=== PATIENT | female | born 1940 | race Caucasian/White ===

== ENCOUNTER 2016-12-31 11:42 | Emergency (ER) | payer MEDICARE, OTHER ==
[2016-12-31 12:07] VITALS: BP 144/81
--- NOTE | 2016-12-31 12:14 | EDM.PDOC ---
ED HISTORY OF PRESENT ILLNESS - General Chief Complaint: Respiratory Problem Stated Complaint: COUGH Time Seen by Provider: 12/31/16 12:13 Source: Reports: Patient History Limitations: Reports: No limitations - History of Present Illness INITIAL COMMENTS - FREE TEXT/NARRATIVE: pt arrived coughing markedly. She has lost her voice at this time. Timing/Duration: Reports: Day(s):, Getting worse Location, General: Reports: chest Associated Symptoms: Reports: fever/chills, shortness of breath - Related Data Allergies/ADRs: Allergies Allergy/AdvReac Type Severity Reaction Status Date / Time No Known Allergies Allergy Verified 10/18/15 10:29 Home Meds: Home Meds Aspirin [Ecotrin] 81 mg PO DAILY 06/17/13 [History] Atenolol [Tenormin] 25 mg PO DAILY 06/17/13 [History] Estrogens, Conjugated [Premarin] 1.25 mg PO DAILY 06/17/13 [History] Pantoprazole Sodium [Protonix] 45 mg PO DAILY 06/17/13 [History] Spironolactone [Aldactone] 25 mg PO DAILY 06/17/13 [History] Vit C/Vit E Ac/Lut/Mineral 1 [Prosight with Lutein] 1 each PO DAILY 06/17/13 [ History] Vitamin D* 2,000 units PO DAILY 06/17/13 [History] atorvaSTATin [Lipitor] 20 mg PO BEDTIME 06/17/13 [History] Vit A/Vit C/Vit E/Zinc/Copper [Preservision] 1 tab PO BID 06/19/13 [History] Fluticasone/Salmeterol [Advair Hfa 230-21 Mcg Inhaler] 1 puff PO DAILY PRN 10/18 [History] Past Medical History HEENT History: Reports: Cataract Cardiovascular History: Reports: Bypass, Hypertension Respiratory History: Reports: Asthma 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 Social & Family History - Family History Cardiac: Reports: CAD Respiratory: Reports: Asthma - Tobacco Use Smoking Status *Q: Never Smoker Years of Tobacco use: 20 Used Tobacco, but Quit: Yes Month Tobacco Last Used: 03/1990 Second Hand Smoke Exposure: No - Alcohol Use Days Per Week of Alcohol Use: 0 - Recreational Drug Use Recreational Drug Use: No ED ROS GENERAL - Review of Systems Review Of Systems: See Below Constitutional: Reports: fever, chills, malaise HEENT: Reports: No symptoms Respiratory: Reports: Cough, Sputum Cardiovascular: Reports: No symptoms Endocrine: Reports: no symptoms GI/Abdominal: Reports: No symptoms : Reports: no symptoms ED EXAM, GENERAL - Physical Exam Exam: See Below Free Text/Narrative:: pt arrived with marked cough for the past 2 days. She has had a fever on and off. Exam Limited By: No limitations General Appearance: alert, mild distress Ears: normal TMs Nose: normal inspection Throat/Mouth: Normal inspection Head: atraumatic Neck: normal inspection Respiratory/Chest: decreased breath sounds, wheezing Cardiovascular: regular rate, rhythm GI/Abdominal: soft, non tender Rectal (Female) Exam: Deferred Back Exam: normal inspection Extremities: other ( no edema present. ) Neurological: alert, oriented, normal cognition Psychiatric: normal affect Course - Vital Signs Last Recorded V/S: Last Vital Signs Temp 37.1 C 12/31/16 12:05 Pulse 67 12/31/16 12:05 Resp 15 12/31/16 12:05 BP 144/81 H 12/31/16 12:05 Pulse Ox 96 12/31/16 12:05 - Orders/Labs/Meds Orders: Active Orders 24 hr Category Date Time Status RT Aerosol Therapy [RC] ASDIRECTED Care 12/31/16 12:16 Active Chest 2V [CR] Stat Exams 12/31/16 12:15 Taken Labs: Laboratory Tests 12/31/16 Range/Units 12:18 WBC 11.7 H (4.5-11.0) K/uL RBC 4.27 (3.30-5.50) M/uL Hgb 12.9 (12.0-15.0) g/dL Hct 38.8 (36.0-48.0) % MCV 91 (80-98) fL MCH 30 (27-31) pg MCHC 33 (32-36) % Plt Count 306 (150-400) K/uL Neut % (Auto) 67 H (36-66) % Lymph % (Auto) 18 L (24-44) % Cass % (Auto) 11 H (2-6) % Eos % (Auto) 3 (2-4) % Baso % (Auto) 1 (0-1) % Meds: Medications Discontinued Medications Generic Name Dose Route Start Last Admin Trade Name Aleyda PRN Reason Stop Dose Admin Albuterol 2.5 mg 12/31/16 12:15 12/31/16 12:38 Proventil Neb Soln NEB 12/31/16 12:16 2.5 mg ONETIME ONE Administration - Re-Assessments/Exams Free Text/Narrative Re-Assessment/Exam: 12/31/16 12:52 pt arrived with sob and cough. Her wbc is borderline. She does not have alot of eossinophils. . Her chest xray does not show an infiltracte. She was given a neb and did feel better. She does use advair once per day . Departure - Departure Time of Disposition: 12:53 Disposition: Home, Self-Care 01 Condition: fair Clinical Impression: Bronchitis, Bronchospasm Forms: ED Department Discharge Care Plan Goals: push fluids, cool mist humidifier, cont advair once daily, zithromax for 1 week , robitussin ac 2 tsp q6h as needed for the cough, no work for the next 2 days. - My Orders Last 24 Hours: My Active Orders 12/31/16 12:15 Chest 2V [CR] Stat 12/31/16 12:16 RT Aerosol Therapy [RC] ASDIRECTED - Assessment/Plan Last 24 Hours: My Active Orders 12/31/16 12:15 Chest 2V [CR] Stat 12/31/16 12:16 RT Aerosol Therapy [RC] ASDIRECTED
[2016-12-31] MEDS ORDERED: Albuterol 0.083% 2.5 MG/3 ML Neb Soln NEB ONE (12:15)
--- NOTE | 2017-01-01 10:26 | CR ---
Two-view chest Comparison: June 2008. Intact sternal wires are demonstrated. The heart and vascular structures are within normal limits. There are no infiltrates or effusions. There is a chronic nodular density in the right lung base. Impression: 1. Stable exam. No acute findings.
== END 2016-12-31 13:08 | disposition home or self-care (01) ==
LOC: JP.ED 11:42
DX: J40 Bronchitis, not specified as acute or chronic (principal); J98.01 Acute bronchospasm; I10 Essential (primary) hypertension; Z79.82 Long term (current) use of aspirin; Z79.899 Other long term (current) drug therapy; Z90.49 Acquired absence of other specified parts of digestive tract; Z90.710 Acquired absence of both cervix and uterus
CPT/HCPCS: 36415; 71020; 71020-26; 85025; 99283; 99284

== ENCOUNTER 2017-05-14 09:29 | Inpatient (IN) | payer MEDICARE, OTHER ==
[2017-05-14] MEDS ORDERED: Acetaminophen 325 MG Tab PO ONE (10:09)
--- NOTE | 2017-05-14 10:11 | EDM.PDOC ---
ED HPI GENERAL MEDICAL PROBLEM - General Chief Complaint: General Stated Complaint: CHILLS WEAK Time Seen by Provider: 05/14/17 10:01 Source of Information: Reports: Patient, Family, RN Notes Reviewed History Limitations: Reports: No Limitations - History of Present Illness INITIAL COMMENTS - FREE TEXT/NARRATIVE: 76-year-old female presents to emergency department day complaint of fevers and chills, she states she's been ill for the last 3 days she denies any tick exposure she does admit to urinary frequency but no other symptoms - Related Data Allergies Allergy/AdvReac Type Severity Reaction Status Date / Time No Known Allergies Allergy Verified 05/14/17 09:53 Home Meds: Home Meds Aspirin [Ecotrin] 81 mg PO DAILY 06/17/13 [History] Atenolol [Tenormin] 25 mg PO DAILY 06/17/13 [History] Estrogens, Conjugated [Premarin] 1.25 mg PO DAILY 06/17/13 [History] Pantoprazole Sodium [Protonix] 40 mg PO DAILY 06/17/13 [History] atorvaSTATin [Lipitor] 20 mg PO BEDTIME 06/17/13 [History] Vit A/Vit C/Vit E/Zinc/Copper [Preservision] 1 tab PO BID 06/19/13 [History] Fluticasone/Salmeterol [Advair Hfa 230-21 Mcg Inhaler] 1 puff PO DAILY PRN 10/18 [History] Spironolact/Hydrochlorothiazid [Spironolactone-HCTZ 25-25] 1 tab PO DAILY [History] Past Medical History HEENT History: Reports: Cataract Cardiovascular History: Reports: Bypass, CAD, Hypertension 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 History: Reports: Asthma 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: - Past Surgical History HEENT Surgical History: Reports: Cataract Surgery, Other (See Below) Other HEENT Surgeries/Procedures: teeth removal Cardiovascular Surgical History: Reports: Coronary Artery Bypass GI Surgical History: Reports: Cholecystectomy Female Surgical History: Reports: Hysterectomy Musculoskeletal Surgical History: Reports: Shoulder Surgery Other Musculoskeletal Surgeries/Procedures:: torn left rotator cuff Social & Family History - Family History Cardiac: Reports: CAD Respiratory: Reports: Asthma - Tobacco Use Smoking Status *Q: Former Smoker Years of Tobacco use: 20 Used Tobacco, but Quit: Yes Month Tobacco Last Used: 0 Second Hand Smoke Exposure: No - Alcohol Use Days Per Week of Alcohol Use: 0 - Recreational Drug Use Recreational Drug Use: No ED ROS GENERAL - Review of Systems Review Of Systems: See Below Constitutional: Reports: Fever, Chills HEENT: Reports: No Symptoms Respiratory: Reports: No Symptoms Cardiovascular: Reports: No Symptoms GI/Abdominal: Reports: No Symptoms : Reports: Dysuria Musculoskeletal: Reports: No Symptoms Skin: Reports: No Symptoms ED EXAM, GENERAL - Physical Exam Exam: See Below Free Text/Narrative:: General: Female, not in any distress, alert and oriented x3 HEENT: head is atraumatic normocephalic, eyes pupils equal round reactive to light, sclera clear no conjunctivitis appreciated. Ears tympanic membranes clear and claros landmarks and light reflex are present bilaterally canals are clear. Nose no septal deviation, nares are clear, no blood present. Mouth mucosa is moist and pink no erythema or exudate noted in soft palate, tongue is midline uvula is midline, dentures in place. Neck: Supple no thyromegaly no tracheal deviation. Nodes: Cervical nodes subclavicular nodes nontender no palpable lymphadenopathy noted. Lungs: clear to auscultation bilaterally with symmetrical respirations, no adventitious noise appreciated. CV: Regular rate and rhythm S1 and S2 appreciated no murmurs rubs or gallops noted. Abdomen: Soft, nontender, no palpable masses or organomegaly appreciated, no distention no guarding bowel sounds are present, . Neuro: Cranial nerves II through XII grossly intact Skin: Warm and dry, intact Extremities: No lower extremity edema appreciated, pedal pulse is +2. Course - Vital Signs Last Recorded V/S: Last Vital Signs Temp 101.7 F H 05/14/17 09:51 Pulse 75 05/14/17 10:20 Resp 16 05/14/17 10:20 BP 120/49 L 05/14/17 10:20 Pulse Ox 92 L 05/14/17 10:20 - Orders/Labs/Meds Orders: Active Orders 24 hr Category Date Time Status Vital Signs [RC] Q1H Care 05/14/17 10:06 Active CULTURE BLOOD [BC] Urgent Lab 05/14/17 10:07 Received CULTURE BLOOD [BC] Urgent Lab 05/14/17 10:15 Received CULTURE URINE [RM] Urgent Lab 05/14/17 11:04 Uncollected Lactated Ringers [Ringers, Lactated] 1,000 ml Med 05/14/17 10:15 Active IV ASDIRECTED Piperacillin/Tazobactam/Dext [Zosyn in Dextrose Iso- Med 05/14/17 12:00 Active Osmotic 3.375 GM] 3.375 gm Premix Bag 1 bag IV Q6H Blood Culture x2 Reflex Set [OM.PC] Urgent Oth 05/14/17 10:06 Ordered Medication Orders Lactated Ringer's (Ringers, Lactated) 1,000 mls @ 500 mls/hr IV ASDIRECTED VIDHYA Last Admin: 05/14/17 10:25 Dose: 500 mls/hr Piperacillin/Tazobactam/ (Dextrose 3.375 gm/ Premix) 50 mls @ 100 mls/hr IV Q6H VIDHYA Labs: Laboratory Tests 05/14/17 05/14/17 05/14/17 Range/Units 10:06 10:06 10:16 WBC 12.3 H (4.5-11.0) K/uL RBC 4.02 (3.30-5.50) M/uL Hgb 12.4 (12.0-15.0) g/dL Hct 36.5 (36.0-48.0) % MCV 91 (80-98) fL MCH 31 (27-31) pg MCHC 34 (32-36) % Plt Count 258 (150-400) K/uL Neut % (Auto) 84 H (36-66) % Lymph % (Auto) 6 L (24-44) % Pratt % (Auto) 10 H (2-6) % Eos % (Auto) 0 L (2-4) % Baso % (Auto) 0 (0-1) % Sodium 133 L (140-148) mmol/L Potassium 3.0 L (3.6-5.2) mmol/L Chloride 97 L (100-108) mmol/L Carbon Dioxide 26 (21-32) mmol/L Anion Gap 13.0 (5.0-14.0) mmol/L BUN 18 (7-18) mg/dL Creatinine 1.0 (0.6-1.0) mg/dL Est Cr Clr Drug Dosing 36.11 mL/min Estimated GFR (MDRD) 54 L (>60) Glucose 129 H (74-106) mg/dL Lactic Acid (0.4-2.0) mmol/L Calcium 8.3 L (8.5-10.1) mg/dL Total Bilirubin 0.4 (0.2-1.0) mg/dL AST 23 (15-37) U/L ALT 25 (12-78) U/L Alkaline Phosphatase 69 (46-116) U/L C-Reactive Protein 12.44 H (0.0-0.3) mg/dL Total Protein 7.6 (6.4-8.2) g/dL Albumin 2.8 L (3.4-5.0) g/dL Globulin 4.8 H (2.3-3.5) g/dL Albumin/Globulin Ratio 0.6 L (1.2-2.2) Urine Color Yellow Urine Appearance Cloudy Urine pH 6.0 (4.5-8.0) Ur Specific Page 1.020 (1.008-1.030) Urine Protein 30 H (NEGATIVE) mg/dL Urine Glucose (UA) Normal (NEGATIVE) mg/dL Urine Ketones 15 H (NEGATIVE) mg/dL Urine Occult Blood Moderate (NEGATIVE) Urine Nitrite Positive H (NEGATIVE) Urine Bilirubin Negative (NEGATIVE) Urine Urobilinogen Normal (NORMAL) mg/dL Ur Leukocyte Esterase Large (NEGATIVE) Urine RBC 10-20 H (0-5) Urine WBC 75-100 H (0-5) Ur Epithelial Cells Moderate Amorphous Sediment Not seen Urine Bacteria Many Urine Mucus Not seen 05/14/17 Range/Units 10:16 WBC (4.5-11.0) K/uL RBC (3.30-5.50) M/uL Hgb (12.0-15.0) g/dL Hct (36.0-48.0) % MCV (80-98) fL MCH (27-31) pg MCHC (32-36) % Plt Count (150-400) K/uL Neut % (Auto) (36-66) % Lymph % (Auto) (24-44) % Pratt % (Auto) (2-6) % Eos % (Auto) (2-4) % Baso % (Auto) (0-1) % Sodium (140-148) mmol/L Potassium (3.6-5.2) mmol/L Chloride (100-108) mmol/L Carbon Dioxide (21-32) mmol/L Anion Gap (5.0-14.0) mmol/L BUN (7-18) mg/dL Creatinine (0.6-1.0) mg/dL Est Cr Clr Drug Dosing mL/min Estimated GFR (MDRD) (>60) Glucose (74-106) mg/dL Lactic Acid 0.9 (0.4-2.0) mmol/L Calcium (8.5-10.1) mg/dL Total Bilirubin (0.2-1.0) mg/dL AST (15-37) U/L ALT (12-78) U/L Alkaline Phosphatase (46-116) U/L C-Reactive Protein (0.0-0.3) mg/dL Total Protein (6.4-8.2) g/dL Albumin (3.4-5.0) g/dL Globulin (2.3-3.5) g/dL Albumin/Globulin Ratio (1.2-2.2) Urine Color Urine Appearance Urine pH (4.5-8.0) Ur Specific Page (1.008-1.030) Urine Protein (NEGATIVE) mg/dL Urine Glucose (UA) (NEGATIVE) mg/dL Urine Ketones (NEGATIVE) mg/dL Urine Occult Blood (NEGATIVE) Urine Nitrite (NEGATIVE) Urine Bilirubin (NEGATIVE) Urine Urobilinogen (NORMAL) mg/dL Ur Leukocyte Esterase (NEGATIVE) Urine RBC (0-5) Urine WBC (0-5) Ur Epithelial Cells Amorphous Sediment Urine Bacteria Urine Mucus Meds: Medications Generic Name Dose Route Start Last Admin Trade Name Freq PRN Reason Stop Dose Admin Lactated Ringer's 1,000 mls @ 500 mls/hr 05/14/17 10:15 05/14/17 10:25 Ringers, Lactated IV 500 mls/hr ASDIRECTED VIDHYA Administration Piperacillin/Tazobactam/ 50 mls @ 100 mls/hr 05/14/17 12:00 Dextrose 3.375 gm/ Premix IV Q6H VIDHYA Discontinued Medications Generic Name Dose Route Start Last Admin Trade Name Freq PRN Reason Stop Dose Admin Acetaminophen 650 mg 05/14/17 10:05/14/17 10:22 Tylenol PO 05/14/17 10:10 650 mg NOW ONE Administration Piperacillin Sod/Tazobactam 50 mls @ 100 mls/hr 05/14/17 11:00 Sod 3.375 gm/ Sodium Chloride IV Q6H [facility] Departure - Departure Time of Disposition: 11:11 Disposition: Admitted As Inpatient 66 Condition: Fair Clinical Impression: UTI, Urinary tract infectious disease, Sepsis secondary to UTI - Discharge Information Referrals: PCP,None [Primary Care Provider] - Forms: ED Department Discharge - My Orders Last 24 Hours: My Active Orders 05/14/17 10:06 Vital Signs [RC] Q1H Blood Culture x2 Reflex Set [OM.PC] Urgent 05/14/17 10:07 CULTURE BLOOD [BC] Urgent 05/14/17 10:15 CULTURE BLOOD [BC] Urgent Lactated Ringers [Ringers, Lactated] 1,000 ml IV ASDIRECTED 05/14/17 11:04 CULTURE URINE [RM] Urgent 05/14/17 12:00 Piperacillin/Tazobactam/Dext [Zosyn in Dextrose Iso-Osmotic 3.375 GM] 3.375 gm Premix Bag 1 bag IV Q6H - Assessment/Plan Last 24 Hours: My Active Orders 05/14/17 10:06 Vital Signs [RC] Q1H Blood Culture x2 Reflex Set [OM.PC] Urgent 05/14/17 10:07 CULTURE BLOOD [BC] Urgent 05/14/17 10:15 CULTURE BLOOD [BC] Urgent Lactated Ringers [Ringers, Lactated] 1,000 ml IV ASDIRECTED 05/14/17 11:04 CULTURE URINE [RM] Urgent 05/14/17 12:00 Piperacillin/Tazobactam/Dext [Zosyn in Dextrose Iso-Osmotic 3.375 GM] 3.375 gm Premix Bag 1 bag IV Q6H Plan: Assessment Acuity = acute Site and laterality = urinary tract infection with concern for development of early sepsis complicated patient with known history of coronary artery disease and mild intermittent asthma Etiology = suspicious for bacterial cause Manifestations = fever, dysuria Location of injury = Home Lab values = WBC elevated at 12.3 consistent leukocytosis, sodium low at 133 consistent hyponatremia potassium low at 3.0 consistent hypokalemia lactic acid normal at 0.9 CRP elevated at 12.49 albumin low at 2.8 consistent hypoalbuminemia chest x-ray I did review films myself I cannot appreciate any acute process, the official read from radiology is pending, urinalysis reveals protein of 30 consistent proteinuria ketones of 15 consistent with ketonuria positive for nitrates RBC 10-20 consistent with a hematuria and WBC 75-100 consistent with pyuria cultures pending, blood cultures drawn and pending Plan Discussed the case with hospitalist acquisition analyst he agreed to come and evaluate the patient in the emergency department for admission she has been provided 1 L of lactated Ringer's, Tylenol and 1 dose of Zosyn Patient was in agreement with the plan all questions were answered, This note was dictated using POW voice recognition software please call with any questions.
[2017-05-14] MEDS ORDERED: Lactated Ringers 1,000 ML IV SCH (10:15)
--- NOTE | 2017-05-14 10:57 | CR ---
Chest 2V INDICATION: fever FINDINGS: Comparison 12/31/2016. Sternotomy. Normal heart size. No focal infiltrate. Stable chronic nod ular density in the right lung base is better visualized on prior exam.
[2017-05-14] MEDS ORDERED: Piperacillin/Tazobactam 3.375 GM in Sodium Chloride 0.9% 50 ML IV SCH (11:00)
[2017-05-14] MEDS ORDERED: Potassium Chloride 20 MEQ Tab.ER PO ONE (11:14)
[2017-05-14] MEDS: Potassium Chloride 20 MEQ, Lidocaine 1% 2 ML in Sodium Chloride 0.9% 100 ML IV SCH ×2 (11:50→13:28)
[2017-05-14] MEDS ORDERED: Piperacillin/Tazobactam/Dext 3.375 GM in Premix Bag 1 BAG IV SCH (12:00)
--- NOTE | 2017-05-14 12:31 | PCM.HP ---
H&P History of Present Illness - General Date of Service: 05/14/17 Admit Problem/Dx: Admission Diagnosis/Problem Admission Diagnosis/Problem Cystitis Source of Information: Patient, Family, Provider, RN Notes Reviewed History Limitations: Reports: No Limitations - History of Present Illness Initial Comments - Free Text/Narative: Ms. Paul is a 76-year-old woman who is admitted through the emergency department with cystitis and early sepsis. She has not felt well over the past 48 hours, recent symptoms include, fever, chills, sweats, anorexia, myalgias, weakness, lightheadedness, as well as nausea and vomiting. On evaluation in emergency department she is noted to have temperature elevation of 101.7 associated with a modest elevation in white blood cell count. Chest x-ray shows no evidence of infiltrate, but urinalysis shows evidence of obvious infection. With temperature elevation she's felt to have early sepsis and has received acres IV fluid replacement in the emergency department. Blood cultures have been obtained as well as urine culture and she has been given her an initial dose of antibiotics. Lactic acid level is within normal range, heart rate and blood pressure are adequate. - Related Data Allergies/Adverse Reactions: Allergies Allergy/AdvReac Type Severity Reaction Status Date / Time No Known Allergies Allergy Verified 05/14/17 09:53 Home Medications: Home Meds Aspirin [Ecotrin] 81 mg PO DAILY 06/17/13 [History] Atenolol [Tenormin] 25 mg PO DAILY 06/17/13 [History] Estrogens, Conjugated [Premarin] 1.25 mg PO DAILY 06/17/13 [History] Pantoprazole Sodium [Protonix] 40 mg PO DAILY 06/17/13 [History] atorvaSTATin [Lipitor] 20 mg PO BEDTIME 06/17/13 [History] Vit A/Vit C/Vit E/Zinc/Copper [Preservision] 1 tab PO BID 06/19/13 [History] Fluticasone/Salmeterol [Advair Hfa 230-21 Mcg Inhaler] 1 puff PO DAILY PRN 10/18 [History] Spironolact/Hydrochlorothiazid [Spironolactone-HCTZ 25-25] 1 tab PO DAILY [History] Past Medical History HEENT History: Reports: Cataract Cardiovascular History: Reports: Bypass, CAD, Hypertension Respiratory History: Reports: Asthma DE ICER History: Reports: - Past Surgical History HEENT Surgical History: Reports: Cataract Surgery, Other (See Below) Other HEENT Surgeries/Procedures: teeth removal Cardiovascular Surgical History: Reports: Coronary Artery Bypass GI Surgical History: Reports: Cholecystectomy Female Surgical History: Reports: Hysterectomy Musculoskeletal Surgical History: Reports: Shoulder Surgery Other Musculoskeletal Surgeries/Procedures:: torn left rotator cuff Social & Family History - Family History Cardiac: Reports: CAD Respiratory: Reports: Asthma - Tobacco Use Smoking Status *Q: Former Smoker Years of Tobacco use: 20 Used Tobacco, but Quit: Yes Month Tobacco Last Used: 0 Second Hand Smoke Exposure: No - Alcohol Use Days Per Week of Alcohol Use: 0 - Recreational Drug Use Recreational Drug Use: No H&P Review of Systems - Review of Systems: Review Of Systems: See Below General: Reports: Fever, Chills, Weakness, Decreased Appetite HEENT: Reports: No Symptoms Pulmonary: Reports: No Symptoms Cardiovascular: Reports: No Symptoms Gastrointestinal: Reports: No Symptoms Genitourinary: Reports: Frequency, Urgency. Denies: Dysuria, Burning, Pain Musculoskeletal: Reports: Back Pain Skin: Reports: No Symptoms Psychiatric: Reports: No Symptoms Neurological: Reports: No Symptoms Hematologic/Lymphatic: Reports: No Symptoms Immunologic: Reports: No Symptoms Exam - Exam Exam: See Below - Vital Signs Vital Signs: Last Vital Signs Temp 99.7 F 05/14/17 11:47 Pulse 65 05/14/17 11:47 Resp 14 05/14/17 11:47 BP 110/62 05/14/17 11:47 Pulse Ox 92 L 05/14/17 11:47 Weight: 126 lb 15.78 oz - Exam Quality Assessment: DVT Prophylaxis General: Alert, Oriented, Cooperative, Mild Distress HEENT: PERRLA, Conjunctiva Clear, Hearing Intact, Normal Nasal Septum, Posterior Pharynx Clear, Pupils Equal. No: Mucosa Moist & [place] Neck: Supple, Trachea Midline, +2 Carotid Pulse wo Bruit Lungs: Clear to Auscultation, Normal Respiratory Effort Cardiovascular: Regular Rate, Regular Rhythm, Normal S1, Normal S2. No: Systolic Murmur, Diastolic Murmur GI/Abdominal Exam: Normal Bowel Sounds, Soft, Non-Tender, No Distention Back Exam: Normal Inspection, Full Range of Motion, NT Extremities: Normal Inspection, Non-Tender, No Pedal Edema Skin: Warm, Dry, Intact Neurological: Cranial Nerves Intact, Strength Equal Bilateral, Normal Speech, Normal Tone, Sensation Intact. No: Focal Deficit Neuro Extensive - Mental Status: Alert, Oriented x3, Normal Mood/Affect, Normal Cognition, Memory Intact - Patient Data Lab Results Last 24 hrs: Laboratory Results - last 24 hr 05/14/17 05/14/17 05/14/17 Range/Units 10:06 10:06 10:16 WBC 12.3 H (4.5-11.0) K/uL RBC 4.02 (3.30-5.50) M/uL Hgb 12.4 (12.0-15.0) g/dL Hct 36.5 (36.0-48.0) % MCV 91 (80-98) fL MCH 31 (27-31) pg MCHC 34 (32-36) % Plt Count 258 (150-400) K/uL Neut % (Auto) 84 H (36-66) % Lymph % (Auto) 6 L (24-44) % Delta % (Auto) 10 H (2-6) % Eos % (Auto) 0 L (2-4) % Baso % (Auto) 0 (0-1) % Sodium 133 L (140-148) mmol/L Potassium 3.0 L (3.6-5.2) mmol/L Chloride 97 L (100-108) mmol/L Carbon Dioxide 26 (21-32) mmol/L Anion Gap 13.0 (5.0-14.0) mmol/L BUN 18 (7-18) mg/dL Creatinine 1.0 (0.6-1.0) mg/dL Est Cr Clr Drug Dosing 36.11 mL/min Estimated GFR (MDRD) 54 L (>60) Glucose 129 H (74-106) mg/dL Lactic Acid (0.4-2.0) mmol/L Calcium 8.3 L (8.5-10.1) mg/dL Total Bilirubin 0.4 (0.2-1.0) mg/dL AST 23 (15-37) U/L ALT 25 (12-78) U/L Alkaline Phosphatase 69 (46-116) U/L C-Reactive Protein 12.44 H (0.0-0.3) mg/dL Total Protein 7.6 (6.4-8.2) g/dL Albumin 2.8 L (3.4-5.0) g/dL Globulin 4.8 H (2.3-3.5) g/dL Albumin/Globulin Ratio 0.6 L (1.2-2.2) Urine Color Yellow Urine Appearance Cloudy Urine pH 6.0 (4.5-8.0) Ur Specific [place] 1.020 (1.008-1.030) Urine Protein 30 H (NEGATIVE) mg/dL Urine Glucose (UA) Normal (NEGATIVE) mg/dL Urine Ketones 15 H (NEGATIVE) mg/dL Urine Occult Blood Moderate (NEGATIVE) Urine Nitrite Positive H (NEGATIVE) Urine Bilirubin Negative (NEGATIVE) Urine Urobilinogen Normal (NORMAL) mg/dL Ur Leukocyte Esterase Large (NEGATIVE) Urine RBC 10-20 H (0-5) Urine WBC 75-100 H (0-5) Ur Epithelial Cells Moderate Amorphous Sediment Not seen Urine Bacteria Many Urine Mucus Not seen 05/14/17 Range/Units 10:16 WBC (4.5-11.0) K/uL RBC (3.30-5.50) M/uL Hgb (12.0-15.0) g/dL Hct (36.0-48.0) % MCV (80-98) fL MCH (27-31) pg MCHC (32-36) % Plt Count (150-400) K/uL Neut % (Auto) (36-66) % Lymph % (Auto) (24-44) % Delta % (Auto) (2-6) % Eos % (Auto) (2-4) % Baso % (Auto) (0-1) % Sodium (140-148) mmol/L Potassium (3.6-5.2) mmol/L Chloride (100-108) mmol/L Carbon Dioxide (21-32) mmol/L Anion Gap (5.0-14.0) mmol/L BUN (7-18) mg/dL Creatinine (0.6-1.0) mg/dL Est Cr Clr Drug Dosing mL/min Estimated GFR (MDRD) (>60) Glucose (74-106) mg/dL Lactic Acid 0.9 (0.4-2.0) mmol/L Calcium (8.5-10.1) mg/dL Total Bilirubin (0.2-1.0) mg/dL AST (15-37) U/L ALT (12-78) U/L Alkaline Phosphatase (46-116) U/L C-Reactive Protein (0.0-0.3) mg/dL Total Protein (6.4-8.2) g/dL Albumin (3.4-5.0) g/dL Globulin (2.3-3.5) g/dL Albumin/Globulin Ratio (1.2-2.2) Urine Color Urine Appearance Urine pH (4.5-8.0) Ur Specific [place] (1.008-1.030) Urine Protein (NEGATIVE) mg/dL Urine Glucose (UA) (NEGATIVE) mg/dL Urine Ketones (NEGATIVE) mg/dL Urine Occult Blood (NEGATIVE) Urine Nitrite (NEGATIVE) Urine Bilirubin (NEGATIVE) Urine Urobilinogen (NORMAL) mg/dL Ur Leukocyte Esterase (NEGATIVE) Urine RBC (0-5) Urine WBC (0-5) Ur Epithelial Cells Amorphous Sediment Urine Bacteria Urine Mucus Result Diagrams: 05/14/17 10:06 05/14/17 10:16 *Q Meaningful Use (ADM) - VTE *Q VTE Criteria *Q: - VTE Risk Assess *Q Each Risk Factor Represents 1 Point: None Total Score 1 Point Risk Factors: 0 Each Risk Factor Represents 2 Points: None Total Score 2 Point Risk Factors: 0 Each Risk Factor Represents 3 Points: Age 75 Years or Greater Total Score 3 Point Risk Factors: 3 Each Risk Factor Represents 5 Points: None Total Score 5 Point Risk Factors: 0 Venous Thromboembolism Risk Factor Score *Q: 3 - Stroke *Q Stroke Criteria *Q: - AMI *Q AMI Criteria *Q: Problem List Initiated/Reviewed/Updated: Yes Orders Last 24hrs: Active Orders 24 hr Category Date Time Status Patient Status Manage Transfer [TRANSFER] Routine ADT 05/14/17 12:14 Active Vital Signs [RC] Q1H Care 05/14/17 10:06 Active CULTURE BLOOD [BC] Urgent Lab 05/14/17 10:07 Received CULTURE BLOOD [BC] Urgent Lab 05/14/17 10:15 Received CULTURE URINE [RM] Urgent Lab 05/14/17 11:49 Received Lactated Ringers [Ringers, Lactated] 1,000 ml Med 05/14/17 10:15 Active IV ASDIRECTED Piperacillin/Tazobactam/Dext [Zosyn in Dextrose Iso- Med 05/14/17 12:00 Active Osmotic 3.375 GM] 3.375 gm Premix Bag 1 bag IV Q6H Potassium Chloride 20 meq Med 05/14/17 11:30 Active Lidocaine 1% [Xylocaine 1%] 2 ml Sodium Chloride 0.9% [Normal Saline] 100 ml IV Q2H Blood Culture x2 Reflex Set [OM.PC] Urgent Oth 05/14/17 10:06 Ordered Resuscitation Status Routine Resus Stat 05/14/17 12:16 Ordered Medication Orders Lactated Ringer's (Ringers, Lactated) 1,000 mls @ 500 mls/hr IV ASDIRECTED [facility] Last Admin: 05/14/17 10:25 Dose: 500 mls/hr Piperacillin/Tazobactam/ (Dextrose 3.375 gm/ Premix) 50 mls @ 100 mls/hr IV Q6H [facility] Last Admin: 05/14/17 11:20 Dose: 100 mls/hr Potassium Chloride 20 meq/Lidocaine HCl 2 ml/ Sodium Chloride 112 mls @ 56 mls/ hr IV Q2H [facility] Stop: 05/14/17 15:29 Last Admin: 05/14/17 11:50 Dose: 56 mls/hr Assessment/Plan Comment:: ASSESSMENT AND PLAN CYSTITIS WITH EARLY SEPSIS-symptoms present for 2 days, modest elevation in white blood cell count associated with fever and urinalysis consistent with infection. She is hemodynamically stable at the present time with a normal lactic acid level. -Vigorous IV fluids for hydration and management of early sepsis -Blood and urine cultures pending -Rocephin 1 g IV every 24 hours pending culture results CORONARY ARTERY DISEASE-currently asymptomatic -Continue outpatient medical management HISTORY OF REACTIVE AIRWAY DISEASE -Nebulized albuterol as needed MAINTENANCE ISSUES -DVT prophylaxis; Lovenox 40 mg subcutaneous daily -GI prophylaxis; continue outpatient PPI therapy -Marte catheter; not indicated -Nutrition; regular diet -Nicotine dependence; not required CODE STATUS-FULL CODE ADMISSION STATUS-patient will be admitted to inpatient status, expect at least a 2 night hospital stay for evaluation and management of problems as outlined above. At the time of this admission I do not reasonably expected evaluation and management of this problem will require more than a 96 hour hospital stay. DISPOSITION-anticipate discharge to home after the hospital stay. PRIMARY CARE PROVIDER-
[2017-05-14] MEDS ORDERED: Docusate Sodium 100 MG Cap PO PRN (12:50)
[2017-05-14] MEDS ORDERED: Polyethylene Glycol 3350 Powder 17 GM Packet PO PRN (12:50)
[2017-05-14] MEDS ORDERED: Sodium Chloride 0.9% 10 ML Syringe FLUSH PRN (12:50)
[2017-05-14] MEDS ORDERED: Ondansetron 4 MG/2 ML SDV IV PRN (12:50)
[2017-05-14] MEDS ORDERED: Magnesium Hydroxide 400 MG/5 ML Susp 30 ML Cup PO PRN (12:50)
[2017-05-14] MEDS ORDERED: oxyCODONE 5 MG Tab PO PRN (12:50)
[2017-05-14] MEDS: cefTRIAXone 1 GM in Sodium Chloride 0.9% 50 ML IV SCH (13:28)
[2017-05-14] MEDS: Enoxaparin 40 MG/0.4 ML Syringe SUBCUT SCH (14:12)
[2017-05-14] MEDS: Lactated Ringers 1,000 ML IV SCH ×2 (14:15→22:22)
[2017-05-14] MEDS ORDERED: Acetaminophen 325 MG Tab PO PRN (18:21)
[2017-05-14] MEDS: Acetaminophen 325 MG Tab PO PRN ×2 (18:30→18:55)
[2017-05-14] MEDS: atorvaSTATin 20 MG Tab PO SCH (20:49)
[2017-05-14] MEDS ORDERED: Acetaminophen Soln 160 MG/5 ML UD Cup PO PRN (21:22)
[2017-05-15] MEDS: Lactated Ringers 1,000 ML IV SCH (06:25)
[2017-05-15] MEDS: Acetaminophen Soln 650 MG/20.3 ML UD Cup PO PRN ×2 (07:23→16:59)
[2017-05-15] MEDS: Pantoprazole 40 MG Tab.CR PO SCH (07:24)
[2017-05-15] MEDS: Atenolol 25 MG Tab PO SCH (08:46)
[2017-05-15] MEDS: Aspirin 81 MG Tab.EC PO SCH (08:46)
[2017-05-15] MEDS: Hydrochlorothiazide 25 MG Tab PO SCH (08:47)
[2017-05-15] MEDS: Enoxaparin 40 MG/0.4 ML Syringe SUBCUT SCH (08:48)
[2017-05-15] MEDS: Spironolactone 25 MG Tab PO SCH (08:51)
[2017-05-15] MEDS ORDERED: Spironolactone 25 MG Tab PO SCH (09:00)
[2017-05-15] MEDS: Magnesium Oxide 400 MG Tab PO SCH ×2 (09:57→21:19)
[2017-05-15] MEDS ORDERED: Potassium Chloride 20 MEQ Tab.ER PO ONE (10:00)
[2017-05-15] MEDS ORDERED: Magnesium Sulfate/Water 2 GM in Premix Bag 1 BAG IV ONE (10:00)
[2017-05-15] MEDS ORDERED: Potassium Chloride 10 MEQ Cap.ER PO ONE (10:30)
--- NOTE | 2017-05-15 13:28 | PCM.PN ---
- General Info Date of Service: 05/15/17 Functional Status: Reports: Tolerating Diet, Ambulating, Urinating - Review of Systems General: Reports: Fever, Weakness, Chills Pulmonary: Reports: No Symptoms Cardiovascular: Reports: No Symptoms Gastrointestinal: Reports: No Symptoms Genitourinary: Denies: Dysuria, Frequency, Burning, Urgency, Hematuria Systems Review Comment:: Ms. Paul is continued to have intermittent temperature elevation since admission, overall she feels improved with better energy and oral intake. Vital signs have remained stable with no evidence of underlying sepsis. - Patient Data Vitals - Most Recent: Last Vital Signs Temp 97.6 F 05/15/17 11:17 Pulse 58 L 05/15/17 11:17 Resp 24 H 05/15/17 11:17 BP 108/56 L 05/15/17 11:17 Pulse Ox 99 05/15/17 11:17 Weight - Most Recent: 129 lb 4.006 oz I&O - Last 24 Hours: Intake & Output 05/14/17 05/15/17 05/15/17 22:59 06:59 14:59 Intake Total 660 2002 730 Output Total 400 700 850 Balance 260 1302 -120 Lab Results Last 24 Hours: Laboratory Results - last 24 hr 05/15/17 05/15/17 Range/Units 04:50 04:50 WBC 12.1 H (4.5-11.0) K/uL RBC 3.85 (3.30-5.50) M/uL Hgb 11.6 L (12.0-15.0) g/dL Hct 35.3 L (36.0-48.0) % MCV 92 (80-98) fL MCH 30 (27-31) pg MCHC 33 (32-36) % Plt Count 243 (150-400) K/uL Neut % (Auto) 81 H (36-66) % Lymph % (Auto) 10 L (24-44) % [place] % (Auto) 9 H (2-6) % Eos % (Auto) 0 L (2-4) % Baso % (Auto) 0 (0-1) % Sodium 136 L (140-148) mmol/L Potassium 3.4 L (3.6-5.2) mmol/L Chloride 100 (100-108) mmol/L Carbon Dioxide 29 (21-32) mmol/L Anion Gap 10.4 (5.0-14.0) mmol/L BUN 14 (7-18) mg/dL Creatinine 0.9 (0.6-1.0) mg/dL Est Cr Clr Drug Dosing 40.13 mL/min Estimated GFR (MDRD) > 60 (>60) Glucose 104 (74-106) mg/dL Calcium 8.3 L (8.5-10.1) mg/dL Magnesium 1.5 L (1.8-2.4) mg/dL Med Orders - Current: Current Medications Acetaminophen (Tylenol) 650 mg PO Q4H PRN PRN Reason: Fever Last Admin: 05/15/17 07:23 Dose: 650 mg Albuterol (Proventil Neb Soln) 2.5 mg NEB Q4H PRN PRN Reason: Shortness Of Breath/wheezing Aspirin (Halfprin) 81 mg PO DAILY [facility] Last Admin: 05/15/17 08:46 Dose: 81 mg Atenolol (Tenormin) 25 mg PO DAILY [facility] Last Admin: 05/15/17 08:46 Dose: 25 mg Atorvastatin Calcium (Lipitor) 20 mg PO BEDTIME [facility] Last Admin: 05/14/17 20:49 Dose: 20 mg Docusate Sodium (Colace) 100 mg PO BID PRN PRN Reason: Constipation Enoxaparin Sodium (Lovenox) 40 mg SUBCUT DAILY [facility] Last Admin: 05/15/17 08:48 Dose: 40 mg Estrogens Conjugated (Premarin) 1.25 mg PO DAILY [facility] Last Admin: 05/15/17 08:46 Dose: 1.25 mg Hydrochlorothiazide (Hydrochlorothiazide) 25 mg PO DAILY [facility] Last Admin: 05/15/17 08:47 Dose: 25 mg Ceftriaxone Sodium 1 gm/ (Sodium Chloride) 50 mls @ 100 mls/hr IV Q24H [facility] Last Admin: 05/14/17 13:28 Dose: 100 mls/hr Magnesium Hydroxide (Milk Of Magnesia) 30 ml PO Q12H PRN PRN Reason: Constipation Magnesium Oxide (Magnesium Oxide) 400 mg PO BID [facility] Last Admin: 05/15/17 09:57 Dose: 400 mg Ondansetron HCl (Zofran) 4 mg IV Q4H PRN PRN Reason: Nausea/Vomiting Oxycodone HCl (Oxycodone) 5 mg PO Q4H PRN PRN Reason: Pain (moderate 4-6) Pantoprazole Sodium (Protonix) 40 mg PO DAILY@0730 [facility] Last Admin: 05/15/17 07:24 Dose: 40 mg Polyethylene Glycol (Miralax) 17 gm PO DAILY PRN PRN Reason: Constipation Sodium Chloride (Saline Flush) 10 ml FLUSH ASDIRECTED PRN PRN Reason: Keep Vein Open Spironolactone (Aldactone) 25 mg PO DAILY [facility] Last Admin: 05/15/17 08:51 Dose: 25 mg Discontinued Medications Acetaminophen (Tylenol) 650 mg PO NOW ONE Stop: 05/14/17 10:10 Last Admin: 05/14/17 10:22 Dose: 650 mg Acetaminophen (Tylenol) 650 mg PO Q4H PRN PRN Reason: Pain (Mild 1-3)/fever Last Admin: 05/14/17 18:55 Dose: 325 mg Acetaminophen (Tylenol) 650 mg PO Q4H PRN PRN Reason: Fever Acetaminophen (Tylenol Solution) 650 mg PO Q4H PRN PRN Reason: Fever Lactated Ringer's (Ringers, Lactated) 1,000 mls @ 500 mls/hr IV ASDIRECTED [facility] Last Admin: 05/14/17 10:25 Dose: 500 mls/hr Piperacillin Sod/Tazobactam (Sod 3.375 gm/ Sodium Chloride) 50 mls @ 100 mls/ hr IV Q6H [facility] Last Admin: 05/14/17 13:48 Dose: Not Given Piperacillin/Tazobactam/ (Dextrose 3.375 gm/ Premix) 50 mls @ 100 mls/hr IV Q6H [facility] Last Admin: 05/14/17 11:20 Dose: 100 mls/hr Potassium Chloride 20 meq/Lidocaine HCl 2 ml/ Sodium Chloride 112 mls @ 56 mls/ hr IV Q2H [facility] Stop: 05/14/17 15:29 Last Admin: 05/14/17 13:28 Dose: 56 mls/hr Lactated Ringer's (Ringers, Lactated) 1,000 mls @ 125 mls/hr IV ASDIRECTED [facility] Last Admin: 05/15/17 06:25 Dose: 125 mls/hr Magnesium Sulfate 2 gm/ Premix 50 mls @ 25 mls/hr IV ONETIME ONE Stop: 05/15/17 11:59 Last Admin: 05/15/17 09:59 Dose: 25 mls/hr Potassium Chloride (Klor-Con M20) 40 meq PO ONETIME ONE Stop: 05/14/17 11:15 Last Admin: 05/14/17 11:48 Dose: 40 meq Potassium Chloride (Potassium Chloride) 40 meq PO ONETIME ONE Stop: 05/15/17 10:31 Last Admin: 05/15/17 10:08 Dose: 40 meq - Exam Quality Assessment: DVT Prophylaxis General: Alert, Oriented, Cooperative, No Acute Distress Lungs: Clear to Auscultation, Normal Respiratory Effort Cardiovascular: Regular Rate, Regular Rhythm, No Murmurs GI/Abdominal Exam: Normal Bowel Sounds, Soft, Non-Tender, No Distention Extremities: Normal Inspection, Non-Tender, No Pedal Edema Skin: Warm, Dry, Intact - Problem List Review Problem List Initiated/Reviewed/Updated: Yes - My Orders Last 24 Hours: My Active Orders 05/14/17 12:50 Patient Status [ADT] Routine Ambulate [RC] QID Intake and Output [RC] QSHIFT Notify Provider Vital Signs [RC] ASDIRECTED Oxygen Therapy [RC] PRN Peripheral IV Care [RC] Q12H RT Aerosol Therapy [RC] ASDIRECTED Up With Assistance [RC] ASDIRECTED Up to Chair [RC] QID VTE/DVT Education [RC] Per Unit Routine Vital Signs [RC] Q4H Albuterol [Proventil Neb Soln] 2.5 mg NEB Q4H PRN Docusate Sodium [Colace] 100 mg PO BID PRN Enoxaparin [Lovenox] 40 mg SUBCUT DAILY Magnesium Hydroxide [Milk of Magnesia] 30 ml PO Q12H PRN Ondansetron [Zofran] 4 mg IV Q4H PRN Polyethylene Glycol 3350 [MiraLAX] 17 gm PO DAILY PRN Sodium Chloride 0.9% [Saline Flush] 10 ml FLUSH ASDIRECTED PRN oxyCODONE 5 mg PO Q4H PRN Peripheral IV Insertion Adult [OM.PC] Routine 05/14/17 14:00 cefTRIAXone [Rocephin] 1 gm Sodium Chloride 0.9% [Normal Saline] 50 ml IV Q24H 05/14/17 21:00 atorvaSTATin [Lipitor] 20 mg PO BEDTIME 05/15/17 07:11 Acetaminophen [Tylenol] 650 mg PO Q4H PRN 05/15/17 07:30 Pantoprazole [ProTONIX] 40 mg PO DAILY@0730 05/15/17 09:00 Aspirin [Halfprin] 81 mg PO DAILY Atenolol [Tenormin] 25 mg PO DAILY Estrogens, Conjugated [Premarin] 1.25 mg PO DAILY Hydrochlorothiazide 25 mg PO DAILY Spironolactone [Aldactone] 25 mg PO DAILY 05/15/17 09:15 Magnesium Oxide 400 mg PO BID 05/15/17 13:11 Convert IV to Saline Lock [OM.PC] Routine 05/16/17 05:00 BASIC METABOLIC PANEL,BMP [CHEM] Timed CBC WITH AUTO DIFF [HEME] Timed MAGNESIUM [CHEM] Timed - Plan Plan:: ASSESSMENT AND PLAN CYSTITIS WITH EARLY SEPSIS-recurrent temperature elevation since admission with mild persistent elevation in white blood cell count. She feels improved with better appetite and more energy. No evidence of ongoing sepsis. -Saline lock IV -Blood and urine cultures pending -Rocephin 1 g IV every 24 hours pending culture results CORONARY ARTERY DISEASE-currently asymptomatic -Continue outpatient medical management HISTORY OF REACTIVE AIRWAY DISEASE -Nebulized albuterol as needed MAINTENANCE ISSUES -DVT prophylaxis; Lovenox 40 mg subcutaneous daily -GI prophylaxis; continue outpatient PPI therapy -[place]re catheter; not indicated -Nutrition; regular diet -Nicotine dependence; not required CODE STATUS-FULL CODE ADMISSION STATUS-patient will be admitted to inpatient status, expect at least a 2 night hospital stay for evaluation and management of problems as outlined above. At the time of this admission I do not reasonably expected evaluation and management of this problem will require more than a 96 hour hospital stay. DISPOSITION-anticipate discharge to home after the hospital stay. PRIMARY CARE PROVIDER-
[2017-05-15] MEDS: cefTRIAXone 1 GM in Sodium Chloride 0.9% 50 ML IV SCH (13:39)
[2017-05-15] MEDS ORDERED: Ibuprofen 400 MG Tab PO PRN (17:36)
[2017-05-15] MEDS: atorvaSTATin 20 MG Tab PO SCH (21:20)
[2017-05-16] MEDS: Acetaminophen Soln 650 MG/20.3 ML UD Cup PO PRN ×2 (04:44→11:41)
[2017-05-16] MEDS: Pantoprazole 40 MG Tab.CR PO SCH (07:50)
[2017-05-16] MEDS: Magnesium Oxide 400 MG Tab PO SCH ×2 (08:57→20:43)
[2017-05-16] MEDS: Aspirin 81 MG Tab.EC PO SCH (08:57)
[2017-05-16] MEDS: Atenolol 25 MG Tab PO SCH (08:58)
[2017-05-16] MEDS: Hydrochlorothiazide 25 MG Tab PO SCH (09:00)
[2017-05-16] MEDS: Spironolactone 25 MG Tab PO SCH (09:00)
[2017-05-16] MEDS ORDERED: Potassium Chloride 20 MEQ Tab.ER PO ONE ×2 (09:00→18:00)
[2017-05-16] MEDS: Enoxaparin 40 MG/0.4 ML Syringe SUBCUT SCH (09:01)
[2017-05-16] MEDS: Potassium Chloride 20 MEQ, Lidocaine 1% 2 ML in Sodium Chloride 0.9% 100 ML IV SCH ×2 (10:04→11:59)
[2017-05-16] MEDS: Albuterol 0.083% 2.5 MG/3 ML Neb Soln NEB PRN ×2 (11:41→20:43)
[2017-05-16] MEDS: cefTRIAXone 1 GM in Sodium Chloride 0.9% 50 ML IV SCH (14:06)
--- NOTE | 2017-05-16 17:28 | PCM.PN ---
- General Info Date of Service: 05/16/17 Functional Status: Reports: Pain Controlled, Tolerating Diet, Ambulating - Review of Systems General: Reports: Fever, Weakness, Chills Pulmonary: Reports: No Symptoms Cardiovascular: Reports: No Symptoms Gastrointestinal: Reports: No Symptoms Genitourinary: Reports: No Symptoms Musculoskeletal: Denies: Back Pain Systems Review Comment:: Ms. Paul continues to have temperature elevations, likely indicating that this is more of a complicated urinary tract infection with probable component of pyelonephritis. Otherwise she has improved white blood cell count has normalized and vital signs have been stable. Energy levels further improved and appetite is improving on a daily basis. - Patient Data Vitals - Most Recent: Last Vital Signs Temp 99.7 F 05/16/17 14:29 Pulse 71 05/16/17 14:29 Resp 16 05/16/17 14:29 BP 139/79 05/16/17 14:29 Pulse Ox 93 L 05/16/17 14:29 Weight - Most Recent: 129 lb 4.006 oz I&O - Last 24 Hours: Intake & Output 05/16/17 05/16/17 05/16/17 06:59 14:59 22:59 Intake Total 550 874 Balance 550 874 Lab Results Last 24 Hours: Laboratory Results - last 24 hr 05/16/17 05/16/17 Range/Units 05:30 05:30 WBC 9.6 (4.5-11.0) K/uL RBC 3.78 (3.30-5.50) M/uL Hgb 11.5 L (12.0-15.0) g/dL Hct 35.0 L (36.0-48.0) % MCV 93 (80-98) fL MCH 30 (27-31) pg MCHC 33 (32-36) % Plt Count 247 (150-400) K/uL Neut % (Auto) 78 H (36-66) % Lymph % (Auto) 12 L (24-44) % [place] % (Auto) 10 H (2-6) % Eos % (Auto) 0 L (2-4) % Baso % (Auto) 0 (0-1) % Sodium 139 L (140-148) mmol/L Potassium 3.0 L (3.6-5.2) mmol/L Chloride 102 (100-108) mmol/L Carbon Dioxide 30 (21-32) mmol/L Anion Gap 10.0 (5.0-14.0) mmol/L BUN 12 (7-18) mg/dL Creatinine 0.8 (0.6-1.0) mg/dL Est Cr Clr Drug Dosing 45.19 mL/min Estimated GFR (MDRD) > 60 (>60) Glucose 120 H (74-106) mg/dL Calcium 8.3 L (8.5-10.1) mg/dL Magnesium 2.0 (1.8-2.4) mg/dL Med Orders - Current: Current Medications Acetaminophen (Tylenol) 650 mg PO Q4H PRN PRN Reason: Fever Last Admin: 05/16/17 11:41 Dose: 650 mg Albuterol (Proventil Neb Soln) 2.5 mg NEB Q4H PRN PRN Reason: Shortness Of Breath/wheezing Last Admin: 05/16/17 11:41 Dose: 2.5 mg Aspirin (Halfprin) 81 mg PO DAILY [facility] Last Admin: 05/16/17 08:57 Dose: 81 mg Atenolol (Tenormin) 25 mg PO DAILY [facility] Last Admin: 05/16/17 08:58 Dose: 25 mg Atorvastatin Calcium (Lipitor) 20 mg PO BEDTIME [facility] Last Admin: 05/15/17 21:20 Dose: 20 mg Docusate Sodium (Colace) 100 mg PO BID PRN PRN Reason: Constipation Enoxaparin Sodium (Lovenox) 40 mg SUBCUT DAILY [facility] Last Admin: 05/16/17 09:01 Dose: 40 mg Estrogens Conjugated (Premarin) 1.25 mg PO DAILY [facility] Last Admin: 05/16/17 08:57 Dose: 1.25 mg Fluticasone Propionate (Flonase) 0 gm NASBOTH DAILY [facility] Hydrochlorothiazide (Hydrochlorothiazide) 25 mg PO DAILY [facility] Last Admin: 05/16/17 09:00 Dose: 25 mg Ceftriaxone Sodium 1 gm/ (Sodium Chloride) 50 mls @ 100 mls/hr IV Q24H [facility] Last Admin: 05/16/17 14:06 Dose: 100 mls/hr Ibuprofen (Motrin) 400 mg PO Q6H PRN PRN Reason: Fever Last Admin: 05/15/17 17:51 Dose: 400 mg Lactobacillus Rhamnosus (Culturelle) 2 cap PO BID [facility] Loratadine (Claritin) 10 mg PO BEDTIME [facility] Magnesium Hydroxide (Milk Of Magnesia) 30 ml PO Q12H PRN PRN Reason: Constipation Magnesium Oxide (Magnesium Oxide) 400 mg PO BID [facility] Last Admin: 05/16/17 08:57 Dose: 400 mg Ondansetron HCl (Zofran) 4 mg IV Q4H PRN PRN Reason: Nausea/Vomiting Oxycodone HCl (Oxycodone) 5 mg PO Q4H PRN PRN Reason: Pain (moderate 4-6) Pantoprazole Sodium (Protonix) 40 mg PO DAILY@0730 [facility] Last Admin: 05/16/17 07:50 Dose: 40 mg Polyethylene Glycol (Miralax) 17 gm PO DAILY PRN PRN Reason: Constipation Potassium Chloride (Klor-Con M20) 40 meq PO ONETIME ONE Stop: 05/16/17 17:11 Sodium Chloride (Saline Flush) 10 ml FLUSH ASDIRECTED PRN PRN Reason: Keep Vein Open Spironolactone (Aldactone) 25 mg PO DAILY [facility] Last Admin: 05/16/17 09:00 Dose: 25 mg Discontinued Medications Acetaminophen (Tylenol) 650 mg PO NOW ONE Stop: 05/14/17 10:10 Last Admin: 05/14/17 10:22 Dose: 650 mg Acetaminophen (Tylenol) 650 mg PO Q4H PRN PRN Reason: Pain (Mild 1-3)/fever Last Admin: 05/14/17 18:55 Dose: 325 mg Acetaminophen (Tylenol) 650 mg PO Q4H PRN PRN Reason: Fever Acetaminophen (Tylenol Solution) 650 mg PO Q4H PRN PRN Reason: Fever Lactated Ringer's (Ringers, Lactated) 1,000 mls @ 500 mls/hr IV ASDIRECTED [facility] Last Admin: 05/14/17 10:25 Dose: 500 mls/hr Piperacillin Sod/Tazobactam (Sod 3.375 gm/ Sodium Chloride) 50 mls @ 100 mls/ hr IV Q6H [facility] Last Admin: 05/14/17 13:48 Dose: Not Given Piperacillin/Tazobactam/ (Dextrose 3.375 gm/ Premix) 50 mls @ 100 mls/hr IV Q6H [facility] Last Admin: 05/14/17 11:20 Dose: 100 mls/hr Potassium Chloride 20 meq/Lidocaine HCl 2 ml/ Sodium Chloride 112 mls @ 56 mls/ hr IV Q2H [facility] Stop: 05/14/17 15:29 Last Admin: 05/14/17 13:28 Dose: 56 mls/hr Lactated Ringer's (Ringers, Lactated) 1,000 mls @ 125 mls/hr IV ASDIRECTED [facility] Last Admin: 05/15/17 06:25 Dose: 125 mls/hr Magnesium Sulfate 2 gm/ Premix 50 mls @ 25 mls/hr IV ONETIME ONE Stop: 05/15/17 11:59 Last Admin: 05/15/17 09:59 Dose: 25 mls/hr Potassium Chloride 20 meq/Lidocaine HCl 2 ml/ Sodium Chloride 112 mls @ 56 mls/ hr IV Q2H [facility] Stop: 05/16/17 13:59 Last Admin: 05/16/17 11:59 Dose: 56 mls/hr Potassium Chloride (Klor-Con M20) 40 meq PO ONETIME ONE Stop: 05/14/17 11:15 Last Admin: 05/14/17 11:48 Dose: 40 meq Potassium Chloride (Potassium Chloride) 40 meq PO ONETIME ONE Stop: 05/15/17 10:31 Last Admin: 05/15/17 10:08 Dose: 40 meq Potassium Chloride (Klor-Con M20) 40 meq PO ONETIME ONE Stop: 05/16/17 09:01 Last Admin: 05/16/17 09:10 Dose: 40 meq - Exam Quality Assessment: DVT Prophylaxis General: Alert, Oriented, Cooperative Lungs: Clear to Auscultation, Normal Respiratory Effort Cardiovascular: Regular Rate, Regular Rhythm, No Murmurs GI/Abdominal Exam: Normal Bowel Sounds, Soft, Non-Tender, No Organomegaly, No Distention Extremities: Non-Tender, No Pedal Edema Skin: Warm, Dry, Intact - Problem List Review Problem List Initiated/Reviewed/Updated: Yes - My Orders Last 24 Hours: My Active Orders 05/15/17 17:36 Ibuprofen [Motrin] 400 mg PO Q6H PRN 05/16/17 17:10 Potassium Chloride [Klor-Con M20] 40 meq PO ONETIME ONE 05/16/17 17:15 Fluticasone Propionate [Flonase] See Dose Instructions NASBOTH DAILY Lactobacillus Rhamnosus GG [Culturelle] 2 cap PO BID Loratadine [Claritin] 10 mg PO BEDTIME 05/17/17 05:00 BASIC METABOLIC PANEL,BMP [CHEM] Timed CBC WITH AUTO DIFF [HEME] Timed - Plan Plan:: ASSESSMENT AND PLAN CYSTITIS WITH EARLY SEPSIS AND PROBABLE PYELONEPHRITIS-recurrent temperature elevation since admission, white blood cell count has normalized. She feels improved with better appetite and more energy. No evidence of ongoing sepsis. Back pain has resolved since admission -Saline lock IV -Blood and urine cultures pending -Rocephin 1 g IV every 24 hours pending culture results CORONARY ARTERY DISEASE-currently asymptomatic -Continue outpatient medical management HISTORY OF REACTIVE AIRWAY DISEASE-she has had some ongoing difficulty with a chronic cough, cough seems to originate in her throat. Likely consistent with environmental allergies. -Trial of Flonase and Claritin -Nebulized albuterol as needed MAINTENANCE ISSUES -DVT prophylaxis; Lovenox 40 mg subcutaneous daily -GI prophylaxis; continue outpatient PPI therapy -Marte catheter; not indicated -Nutrition; regular diet -Nicotine dependence; not required CODE STATUS-FULL CODE ADMISSION STATUS-patient will be admitted to inpatient status, expect at least a 2 night hospital stay for evaluation and management of problems as outlined above. At the time of this admission I do not reasonably expected evaluation and management of this problem will require more than a 96 hour hospital stay. DISPOSITION-anticipate discharge to home after the hospital stay. PRIMARY CARE PROVIDER-
[2017-05-16] MEDS: Lactobacillus Rhamnosus GG (Probiotic) Cap PO SCH ×2 (18:12→20:43)
[2017-05-16] MEDS: Loratadine 10 MG Tab PO SCH ×2 (18:14→20:43)
[2017-05-16] MEDS: Fluticasone Propionate Nasal Spray 16 GM Bottle NASBOTH SCH (18:15)
[2017-05-16] MEDS: atorvaSTATin 20 MG Tab PO SCH (20:43)
[2017-05-17] MEDS: Pantoprazole 40 MG Tab.CR PO SCH (07:52)
[2017-05-17] MEDS: Enoxaparin 40 MG/0.4 ML Syringe SUBCUT SCH (08:00)
[2017-05-17] MEDS: Magnesium Oxide 400 MG Tab PO SCH ×2 (08:00→21:16)
[2017-05-17] MEDS: Spironolactone 25 MG Tab PO SCH (08:00)
[2017-05-17] MEDS: Hydrochlorothiazide 25 MG Tab PO SCH (08:00)
[2017-05-17] MEDS: Aspirin 81 MG Tab.EC PO SCH (08:00)
[2017-05-17] MEDS: Atenolol 25 MG Tab PO SCH (08:00)
[2017-05-17] MEDS: Fluticasone Propionate Nasal Spray 16 GM Bottle NASBOTH SCH (08:01)
[2017-05-17] MEDS: Lactobacillus Rhamnosus GG (Probiotic) Cap PO SCH ×2 (09:17→21:16)
--- NOTE | 2017-05-17 10:47 | PCM.PN ---
- General Info Date of Service: 05/17/17 Functional Status: Reports: Pain Controlled, Tolerating Diet, Ambulating - Review of Systems General: Reports: Weakness. Denies: Fever, Chills Pulmonary: Reports: Cough. Denies: Shortness of Breath, Pleuritic Chest Pain, Sputum Cardiovascular: Denies: Chest Pain, Palpitations, Dyspnea on Exertion, Orthopnea , PND, Edema Gastrointestinal: Reports: No Symptoms Systems Review Comment:: Ms. Paul has remained stable over the past 24 hours, there've been no further temperature elevations since yesterday morning and vital signs have been good. Energy level significantly improved and her appetite is back to normal. Continues to have difficulty with chronic cough, chest x-ray on admission did show evidence of nodular density density in the right lung. - Patient Data Vitals - Most Recent: Last Vital Signs Temp 99.3 F 05/17/17 07:00 Pulse 66 05/17/17 08:00 Resp 18 05/17/17 07:00 BP 155/66 H 05/17/17 08:00 Pulse Ox 95 05/17/17 07:00 Weight - Most Recent: 129 lb 4.006 oz I&O - Last 24 Hours: Intake & Output 05/16/17 05/17/17 05/17/17 22:59 06:59 14:59 Intake Total 800 Balance 800 Lab Results Last 24 Hours: Laboratory Results - last 24 hr 05/17/17 05/17/17 Range/Units 04:25 04:25 WBC 6.7 (4.5-11.0) K/uL RBC 3.56 (3.30-5.50) M/uL Hgb 10.8 L (12.0-15.0) g/dL Hct 32.6 L (36.0-48.0) % MCV 92 (80-98) fL MCH 30 (27-31) pg MCHC 33 (32-36) % Plt Count 258 (150-400) K/uL Neut % (Auto) 60 (36-66) % Lymph % (Auto) 25 (24-44) % [place] % (Auto) 15 H (2-6) % Eos % (Auto) 1 L (2-4) % Baso % (Auto) 0 (0-1) % Sodium 138 L (140-148) mmol/L Potassium 4.1 (3.6-5.2) mmol/L Chloride 104 (100-108) mmol/L Carbon Dioxide 28 (21-32) mmol/L Anion Gap 10.1 (5.0-14.0) mmol/L BUN 9 (7-18) mg/dL Creatinine 0.8 (0.6-1.0) mg/dL Est Cr Clr Drug Dosing 45.19 mL/min Estimated GFR (MDRD) > 60 (>60) Glucose 94 (74-106) mg/dL Calcium 8.4 L (8.5-10.1) mg/dL Med Orders - Current: Current Medications Acetaminophen (Tylenol) 650 mg PO Q4H PRN PRN Reason: Fever Last Admin: 05/16/17 11:41 Dose: 650 mg Albuterol (Proventil Neb Soln) 2.5 mg NEB Q4H PRN PRN Reason: Shortness Of Breath/wheezing Last Admin: 05/16/17 20:43 Dose: 2.5 mg Aspirin (Halfprin) 81 mg PO DAILY [facility] Last Admin: 05/17/17 08:00 Dose: 81 mg Atenolol (Tenormin) 25 mg PO DAILY [facility] Last Admin: 05/17/17 08:00 Dose: 25 mg Atorvastatin Calcium (Lipitor) 20 mg PO BEDTIME [facility] Last Admin: 05/16/17 20:43 Dose: 20 mg Docusate Sodium (Colace) 100 mg PO BID PRN PRN Reason: Constipation Enoxaparin Sodium (Lovenox) 40 mg SUBCUT DAILY [facility] Last Admin: 05/17/17 08:00 Dose: 40 mg Estrogens Conjugated (Premarin) 1.25 mg PO DAILY [facility] Last Admin: 05/17/17 08:00 Dose: 1.25 mg Fluticasone Propionate (Flonase) 0 gm NASBOTH DAILY [facility] Last Admin: 05/17/17 08:01 Dose: 2 sprays Hydrochlorothiazide (Hydrochlorothiazide) 25 mg PO DAILY [facility] Last Admin: 05/17/17 08:00 Dose: 25 mg Ceftriaxone Sodium 1 gm/ (Sodium Chloride) 50 mls @ 100 mls/hr IV Q24H [facility] Last Admin: 05/16/17 14:06 Dose: 100 mls/hr Ibuprofen (Motrin) 400 mg PO Q6H PRN PRN Reason: Fever Last Admin: 05/15/17 17:51 Dose: 400 mg Lactobacillus Rhamnosus (Culturelle) 2 cap PO BID [facility] Last Admin: 05/17/17 09:17 Dose: 2 cap Loratadine (Claritin) 10 mg PO BEDTIME [facility] Last Admin: 05/16/17 20:43 Dose: 10 mg Magnesium Hydroxide (Milk Of Magnesia) 30 ml PO Q12H PRN PRN Reason: Constipation Magnesium Oxide (Magnesium Oxide) 400 mg PO BID [facility] Last Admin: 05/17/17 08:00 Dose: 400 mg Ondansetron HCl (Zofran) 4 mg IV Q4H PRN PRN Reason: Nausea/Vomiting Oxycodone HCl (Oxycodone) 5 mg PO Q4H PRN PRN Reason: Pain (moderate 4-6) Pantoprazole Sodium (Protonix) 40 mg PO DAILY@0730 [facility] Last Admin: 05/17/17 07:52 Dose: 40 mg Polyethylene Glycol (Miralax) 17 gm PO DAILY PRN PRN Reason: Constipation Sodium Chloride (Saline Flush) 10 ml FLUSH ASDIRECTED PRN PRN Reason: Keep Vein Open Spironolactone (Aldactone) 25 mg PO DAILY [facility] Last Admin: 05/17/17 08:00 Dose: 25 mg Discontinued Medications Acetaminophen (Tylenol) 650 mg PO NOW ONE Stop: 05/14/17 10:10 Last Admin: 05/14/17 10:22 Dose: 650 mg Acetaminophen (Tylenol) 650 mg PO Q4H PRN PRN Reason: Pain (Mild 1-3)/fever Last Admin: 05/14/17 18:55 Dose: 325 mg Acetaminophen (Tylenol) 650 mg PO Q4H PRN PRN Reason: Fever Acetaminophen (Tylenol Solution) 650 mg PO Q4H PRN PRN Reason: Fever Lactated Ringer's (Ringers, Lactated) 1,000 mls @ 500 mls/hr IV ASDIRECTED [facility] Last Admin: 05/14/17 10:25 Dose: 500 mls/hr Piperacillin Sod/Tazobactam (Sod 3.375 gm/ Sodium Chloride) 50 mls @ 100 mls/ hr IV Q6H [facility] Last Admin: 05/14/17 13:48 Dose: Not Given Piperacillin/Tazobactam/ (Dextrose 3.375 gm/ Premix) 50 mls @ 100 mls/hr IV Q6H [facility] Last Admin: 05/14/17 11:20 Dose: 100 mls/hr Potassium Chloride 20 meq/Lidocaine HCl 2 ml/ Sodium Chloride 112 mls @ 56 mls/ hr IV Q2H [facility] Stop: 05/14/17 15:29 Last Admin: 05/14/17 13:28 Dose: 56 mls/hr Lactated Ringer's (Ringers, Lactated) 1,000 mls @ 125 mls/hr IV ASDIRECTED [facility] Last Admin: 05/15/17 06:25 Dose: 125 mls/hr Magnesium Sulfate 2 gm/ Premix 50 mls @ 25 mls/hr IV ONETIME ONE Stop: 05/15/17 11:59 Last Admin: 05/15/17 09:59 Dose: 25 mls/hr Potassium Chloride 20 meq/Lidocaine HCl 2 ml/ Sodium Chloride 112 mls @ 56 mls/ hr IV Q2H [facility] Stop: 05/16/17 13:59 Last Admin: 05/16/17 11:59 Dose: 56 mls/hr Potassium Chloride (Klor-Con M20) 40 meq PO ONETIME ONE Stop: 05/14/17 11:15 Last Admin: 05/14/17 11:48 Dose: 40 meq Potassium Chloride (Potassium Chloride) 40 meq PO ONETIME ONE Stop: 05/15/17 10:31 Last Admin: 05/15/17 10:08 Dose: 40 meq Potassium Chloride (Klor-Con M20) 40 meq PO ONETIME ONE Stop: 05/16/17 09:01 Last Admin: 05/16/17 09:10 Dose: 40 meq Potassium Chloride (Klor-Con M20) 40 meq PO ONETIME ONE Stop: 05/16/17 18:01 Last Admin: 05/16/17 18:15 Dose: 40 meq - Exam Quality Assessment: DVT Prophylaxis Lungs: Clear to Auscultation, Normal Respiratory Effort Cardiovascular: Regular Rate, Regular Rhythm, No Murmurs GI/Abdominal Exam: Normal Bowel Sounds, Soft, Non-Tender, No Organomegaly, No Distention Extremities: Non-Tender, No Pedal Edema Skin: Warm, Dry, Intact - Problem List Review Problem List Initiated/Reviewed/Updated: Yes - My Orders Last 24 Hours: My Active Orders 05/16/17 17:15 Loratadine [Claritin] 10 mg PO BEDTIME 05/16/17 18:00 Fluticasone Propionate [Flonase] See Dose Instructions NASBOTH DAILY Lactobacillus Rhamnosus GG [Culturelle] 2 cap PO BID 05/17/17 10:42 Chest w Cont [CT] Urgent - Plan Plan:: ASSESSMENT AND PLAN CYSTITIS WITH EARLY SEPSIS AND PROBABLE PYELONEPHRITIS-no fever now for almost 24 hours, white blood cell count remains normal. -Saline lock IV -Blood and urine cultures pending -Rocephin 1 g IV every 24 hours pending culture results CHRONIC COUGH-present for the past several months, chest x-ray shows evidence of a nodular density at the right base which appears to be stable since previous chest x-ray -CT scan of the chest with IV contrast for further evaluation CORONARY ARTERY DISEASE-currently asymptomatic -Continue outpatient medical management HISTORY OF REACTIVE AIRWAY DISEASE-she has had some ongoing difficulty with a chronic cough, cough seems to originate in her throat. Likely consistent with environmental allergies. -Trial of Flonase and Claritin -Nebulized albuterol as needed MAINTENANCE ISSUES -DVT prophylaxis; Lovenox 40 mg subcutaneous daily -GI prophylaxis; continue outpatient PPI therapy -Marte catheter; not indicated -Nutrition; regular diet -Nicotine dependence; not required CODE STATUS-FULL CODE ADMISSION STATUS-patient will be admitted to inpatient status, expect at least a 2 night hospital stay for evaluation and management of problems as outlined above. At the time of this admission I do not reasonably expected evaluation and management of this problem will require more than a 96 hour hospital stay. DISPOSITION-anticipate discharge to home after the hospital stay. PRIMARY CARE PROVIDER-
[2017-05-17] MEDS ORDERED: Iopamidol 612 MG/ML 100 ML Bottle IV PRN (12:30)
[2017-05-17] MEDS ORDERED: Sodium Chloride 0.9% 75 ML IV SCH (12:30)
--- NOTE | 2017-05-17 14:10 | CT ---
Chest w Cont HISTORY: Chronic cough, nodular density right lung Axial spiral enhanced CT scan of the chest was obtained along with coronal and MIP coronal reconstruc tions. Comparison plain chest radiographs are dated 05/14/2017 and 12/31/2016. FINDINGS: The small nodular density overlying the lower right chest on the plain radiographs appears to correlate with calcification in the anterior end of the right fifth rib, likely representing a graciela ign bone island. No other pulmonary nodule or infiltrate is identified. There is a very small amount of right pleural fluid. Heart size is within normal limits. I see no hilar or mediastinal mass or adenopathy. Anterolateral a spects are noted along the thoracic spine. I see no other lytic or blastic bony lesion. There is a 1 cm diameter roundish calcification near the splenic hilum probably representing a small calcified splenic artery aneurysm. Attenuation of the liver appears somewhat decreased diffusely sugg esting fatty infiltration. Scattered atherosclerotic calcification is noted in the aortic arch and ab dominal aorta. I see no signs of aortic aneurysm or dissection. IMPRESSION: 1. The small density overlying the lower right chest on previous plain chest radiographs and appears to correlate with benign calcification anterior right fifth rib near the costochondral junction. 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 2. Minimal right pleural fluid is noted. 3. Atherosclerotic aorta. No signs of aneurysm or dissection. 4. Probable fatty infiltration of the liver. 5. 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 Total DLP 195 mGycm
[2017-05-17] MEDS: cefTRIAXone 1 GM in Sodium Chloride 0.9% 50 ML IV SCH (15:01)
[2017-05-17] MEDS: atorvaSTATin 20 MG Tab PO SCH (21:16)
[2017-05-17] MEDS: Loratadine 10 MG Tab PO SCH (21:16)
[2017-05-18 02:59] VITALS: BP 150/56
[2017-05-18] MEDS: Lactobacillus Rhamnosus GG (Probiotic) Cap PO SCH (08:43)
[2017-05-18] MEDS: Pantoprazole 40 MG Tab.CR PO SCH (08:43)
[2017-05-18] MEDS: Spironolactone 25 MG Tab PO SCH (08:43)
[2017-05-18] MEDS: Enoxaparin 40 MG/0.4 ML Syringe SUBCUT SCH (08:44)
[2017-05-18] MEDS: Hydrochlorothiazide 25 MG Tab PO SCH (08:44)
[2017-05-18] MEDS: Fluticasone Propionate Nasal Spray 16 GM Bottle NASBOTH SCH (08:44)
[2017-05-18] MEDS: Aspirin 81 MG Tab.EC PO SCH (08:44)
[2017-05-18] MEDS: Magnesium Oxide 400 MG Tab PO SCH (08:44)
[2017-05-18] MEDS: Atenolol 25 MG Tab PO SCH (08:45)
--- NOTE | 2017-05-18 11:56 | PCM.DCSUM1 ---
Discharge Summary - Hospital Course Brief History: Ms. Paul is a 76-year-old woman who was admitted through the emergency department with fever, weakness, lower back pain, and elevated white blood cell count secondary to complicated urinary tract infection with pyelonephritis. She is also felt to have a component of early sepsis with elevated heart rate. - Discharge Data Discharge Date: 05/18/17 Discharge Disposition: Home, Self-Care 01 Condition: Good - Discharge Diagnosis/Problem(s) (1) Pyelonephritis SNOMED Code(s): 17400817 ICD Code: N12 - TUBULO-INTERSTITIAL NEPHRITIS, NOT SPCF ACUTE OR CHRONIC Status: Acute Current Visit: Yes (2) Fever SNOMED Code(s): 026749657 ICD Code: R50.9 - FEVER, UNSPECIFIED Status: Acute Current Visit: Yes (3) Sepsis secondary to UTI SNOMED Code(s): 471685301 ICD Code: A41.9 - SEPSIS, UNSPECIFIED ORGANISM; N39.0 - URINARY TRACT INFECTION, SITE NOT SPECIFIED Status: Acute Current Visit: Yes (4) UTI, Urinary tract infectious disease SNOMED Code(s): 58701735 ICD Code: N39.0 - URINARY TRACT INFECTION, SITE NOT SPECIFIED Status: Acute Current Visit: Yes (5) Asthma SNOMED Code(s): 066533900 ICD Code: J45.909 - UNSPECIFIED ASTHMA, UNCOMPLICATED Status: Chronic Current Visit: No - Patient Summary/Data Hospital Course: Ms. Paul is a 76-year-old woman who presented to the emergency department with a 48 hour history of fever, chills, anorexia, weakness, and low back pain. On evaluation she had documented temperature elevation as well as modest elevation in white blood cell count and urinalysis findings consistent with infection. There is also evidence of early sepsis, although lactic acid level was within normal range. She was admitted to the hospital with a diagnosis of urinary tract infection and early sepsis. She was given IV fluids for hydration as well as IV antibiotic therapy with Rocephin. Urine culture was obtained at the time of admission and later grew out Escherichia coli which was sensitive to most antibiotics. It did take a period of 3 days for her fever resolved and after admission it was felt that she likely also had a component of pyelonephritis given her back pain. By the time of discharge she had been afebrile for almost 48 hours and had normalization of her white blood count. He had ongoing difficulty with chronic cough during hospital stay which has been present for the past few months. She was placed back on her Flonase and also started on Claritin, by the time of discharge she noted some improvement in her cough. Because of chronic cough and also appearance of possible chronic infiltrate in her right lung CT scan of the chest was obtained. Area of possible chronic infiltrate appeared to be secondary to calcification of one of her ribs and there were no other significant abnormalities identified. She will be discharged home on oral antibiotic therapy with cephalexin 500 mg 3 times daily for an additional 5 days. Activity will be as tolerated and she will resume her usual diet. She will be scheduled for follow-up appointment with Jean Maldonado at [facility] in [place]. - Patient Instructions Diet: Usual Diet as Tolerated Activity: As Tolerated Other/Special Instructions: Please schedule follow-up appointment with primary care provider Jean Maldonado within one week. - Discharge Plan Prescriptions/Med Rec: Cephalexin [IJD: Cephalexin] 500 mg PO .EVERY 8 HOURS #15 cap Lactobacillus Rhamnosus GG [Culturelle] 1 cap PO BID #60 cap Loratadine [Claritin] 10 mg PO BEDTIME #30 tablet Home Medications: Home Meds Aspirin [Ecotrin] 81 mg PO DAILY 06/17/13 [History] Atenolol [Tenormin] 25 mg PO DAILY 06/17/13 [History] Estrogens, Conjugated [Premarin] 1.25 mg PO DAILY 06/17/13 [History] Pantoprazole Sodium [Protonix] 40 mg PO DAILY 06/17/13 [History] atorvaSTATin [Lipitor] 20 mg PO BEDTIME 06/17/13 [History] Vit A/Vit C/Vit E/Zinc/Copper [Preservision] 1 tab PO BID 06/19/13 [History] Fluticasone/Salmeterol [Advair Hfa 230-21 Mcg Inhaler] 1 puff PO DAILY PRN 10/18 [History] Spironolact/Hydrochlorothiazid [Spironolactone-HCTZ 25-25] 1 tab PO DAILY [History] Cephalexin [IJD: Cephalexin] 500 mg PO .EVERY 8 HOURS #15 cap 05/18/17 [Rx] Lactobacillus Rhamnosus GG [Culturelle] 1 cap PO BID #60 cap 05/18/17 [Rx] Loratadine [Claritin] 10 mg PO BEDTIME #30 tablet 05/18/17 [Rx] Referrals: Jean Maldonado PA [[facility]] - - Patient Data Vitals - Most Recent: Last Vital Signs Temp 97.7 F 05/18/17 07:00 Pulse 58 L 05/18/17 08:45 Resp 18 05/18/17 07:00 BP 150/56 H 05/18/17 08:45 Pulse Ox 96 05/18/17 07:00 Weight - Most Recent: 129 lb 4.006 oz I&O - Last 24 hours: Intake & Output 05/17/17 05/18/17 05/18/17 22:59 06:59 14:59 Intake Total 530 420 Balance 530 420 Med Orders - Current: Current Medications Acetaminophen (Tylenol) 650 mg PO Q4H PRN PRN Reason: Fever Last Admin: 05/16/17 11:41 Dose: 650 mg Albuterol (Proventil Neb Soln) 2.5 mg NEB Q4H PRN PRN Reason: Shortness Of Breath/wheezing Last Admin: 05/16/17 20:43 Dose: 2.5 mg Aspirin (Halfprin) 81 mg PO DAILY [facility] Last Admin: 05/18/17 08:44 Dose: 81 mg Atenolol (Tenormin) 25 mg PO DAILY [facility] Last Admin: 05/18/17 08:45 Dose: 25 mg Atorvastatin Calcium (Lipitor) 20 mg PO BEDTIME [facility] Last Admin: 05/17/17 21:16 Dose: 20 mg Docusate Sodium (Colace) 100 mg PO BID PRN PRN Reason: Constipation Enoxaparin Sodium (Lovenox) 40 mg SUBCUT DAILY [facility] Last Admin: 05/18/17 08:44 Dose: 40 mg Estrogens Conjugated (Premarin) 1.25 mg PO DAILY [facility] Last Admin: 05/18/17 08:46 Dose: Not Given Fluticasone Propionate (Flonase) 0 gm NASBOTH DAILY [facility] Last Admin: 05/18/17 08:44 Dose: 2 sprays Hydrochlorothiazide (Hydrochlorothiazide) 25 mg PO DAILY [facility] Last Admin: 05/18/17 08:44 Dose: 25 mg Ceftriaxone Sodium 1 gm/ (Sodium Chloride) 50 mls @ 100 mls/hr IV Q24H [facility] Last Admin: 05/17/17 15:01 Dose: 100 mls/hr Ibuprofen (Motrin) 400 mg PO Q6H PRN PRN Reason: Fever Last Admin: 05/15/17 17:51 Dose: 400 mg Lactobacillus Rhamnosus (Culturelle) 2 cap PO BID [facility] Last Admin: 05/18/17 08:43 Dose: 2 cap Loratadine (Claritin) 10 mg PO BEDTIME [facility] Last Admin: 05/17/17 21:16 Dose: 10 mg Magnesium Hydroxide (Milk Of Magnesia) 30 ml PO Q12H PRN PRN Reason: Constipation Magnesium Oxide (Magnesium Oxide) 400 mg PO BID [facility] Last Admin: 05/18/17 08:44 Dose: 400 mg Ondansetron HCl (Zofran) 4 mg IV Q4H PRN PRN Reason: Nausea/Vomiting Oxycodone HCl (Oxycodone) 5 mg PO Q4H PRN PRN Reason: Pain (moderate 4-6) Pantoprazole Sodium (Protonix) 40 mg PO DAILY@0730 [facility] Last Admin: 05/18/17 08:43 Dose: 40 mg Polyethylene Glycol (Miralax) 17 gm PO DAILY PRN PRN Reason: Constipation Sodium Chloride (Saline Flush) 10 ml FLUSH ASDIRECTED PRN PRN Reason: Keep Vein Open Spironolactone (Aldactone) 25 mg PO DAILY [facility] Last Admin: 05/18/17 08:43 Dose: 25 mg Discontinued Medications Acetaminophen (Tylenol) 650 mg PO NOW ONE Stop: 05/14/17 10:10 Last Admin: 05/14/17 10:22 Dose: 650 mg Acetaminophen (Tylenol) 650 mg PO Q4H PRN PRN Reason: Pain (Mild 1-3)/fever Last Admin: 05/14/17 18:55 Dose: 325 mg Acetaminophen (Tylenol) 650 mg PO Q4H PRN PRN Reason: Fever Acetaminophen (Tylenol Solution) 650 mg PO Q4H PRN PRN Reason: Fever Lactated Ringer's (Ringers, Lactated) 1,000 mls @ 500 mls/hr IV ASDIRECTED [facility] Last Admin: 05/14/17 10:25 Dose: 500 mls/hr Piperacillin Sod/Tazobactam (Sod 3.375 gm/ Sodium Chloride) 50 mls @ 100 mls/ hr IV Q6H [facility] Last Admin: 05/14/17 13:48 Dose: Not Given Piperacillin/Tazobactam/ (Dextrose 3.375 gm/ Premix) 50 mls @ 100 mls/hr IV Q6H [facility] Last Admin: 05/14/17 11:20 Dose: 100 mls/hr Potassium Chloride 20 meq/Lidocaine HCl 2 ml/ Sodium Chloride 112 mls @ 56 mls/ hr IV Q2H [facility] Stop: 05/14/17 15:29 Last Admin: 05/14/17 13:28 Dose: 56 mls/hr Lactated Ringer's (Ringers, Lactated) 1,000 mls @ 125 mls/hr IV ASDIRECTED [facility] Last Admin: 05/15/17 06:25 Dose: 125 mls/hr Magnesium Sulfate 2 gm/ Premix 50 mls @ 25 mls/hr IV ONETIME ONE Stop: 05/15/17 11:59 Last Admin: 05/15/17 09:59 Dose: 25 mls/hr Potassium Chloride 20 meq/Lidocaine HCl 2 ml/ Sodium Chloride 112 mls @ 56 mls/ hr IV Q2H [facility] Stop: 05/16/17 13:59 Last Admin: 05/16/17 11:59 Dose: 56 mls/hr Sodium Chloride (Normal Saline) 75 mls @ 3 mls/min IV ASDIRECTED [facility] Stop: 05/17/17 18:00 Last Admin: 05/17/17 13:09 Dose: 3 mls/min Iopamidol (Isovue-300 (61%)) 100 ml IV . DIRECTED PRN PRN Reason: RADIOLOGY EXAM Stop: 05/17/17 18:00 Last Admin: 05/17/17 13:09 Dose: 100 ml Potassium Chloride (Klor-Con M20) 40 meq PO ONETIME ONE Stop: 05/14/17 11:15 Last Admin: 05/14/17 11:48 Dose: 40 meq Potassium Chloride (Potassium Chloride) 40 meq PO ONETIME ONE Stop: 05/15/17 10:31 Last Admin: 05/15/17 10:08 Dose: 40 meq Potassium Chloride (Klor-Con M20) 40 meq PO ONETIME ONE Stop: 05/16/17 09:01 Last Admin: 05/16/17 09:10 Dose: 40 meq Potassium Chloride (Klor-Con M20) 40 meq PO ONETIME ONE Stop: 05/16/17 18:01 Last Admin: 05/16/17 18:15 Dose: 40 meq *Q Meaningful Use (DIS) - VTE *Q VTE Criteria *Q: - Stroke *Q Stroke Criteria *Q: - AMI *Q AMI Criteria *Q:
== END 2017-05-18 12:09 | disposition home or self-care (01) | DRG 872 ==
LOC: JP.ED 09:29 → JP.MS 12:14
PROVIDERS: ADMIT Hospitalist; ATTEND Hospitalist
DX: A41.9 Sepsis, unspecified organism (principal); N39.0 Urinary tract infection, site not specified; N12 Tubulo-interstitial nephritis, not specified as acute or chronic; B96.20 Unspecified Escherichia coli [E. coli] as the cause of diseases classified elsewhere; Z87.891 Personal history of nicotine dependence; I25.10 Atherosclerotic heart disease of native coronary artery without angina pectoris; R53.1 Weakness; R50.9 Fever, unspecified; R35.0 Frequency of micturition; J45.909 Unspecified asthma, uncomplicated; Z95.1 Presence of aortocoronary bypass graft; R05 Cough; Z79.82 Long term (current) use of aspirin
CPT/HCPCS: 36415; 71020 ×2; 80053; 81001; 83605; 85025; 86140; 87040 ×2; 87086; 87088; 87186; 96360; 96361; 99285; A9270 ×2; J2543; J3480; J7030; J7120; 71260; 71260-26; 80048; 83735; 96372; J0696; J1650; J3475; J7050; Q9967

== ENCOUNTER 2017-11-11 11:00 | Emergency (ER) | payer MEDICARE, OTHER ==
[2017-11-11 11:24] VITALS: BP 150/69
--- NOTE | 2017-11-11 11:54 | EDM.PDOC ---
ED HPI GENERAL MEDICAL PROBLEM - General Chief Complaint: Gastrointestinal Problem Stated Complaint: ILLNESS Time Seen by Provider: 11/11/17 11:35 Source of Information: Reports: Patient, Family History Limitations: Reports: No Limitations - History of Present Illness INITIAL COMMENTS - FREE TEXT/NARRATIVE: 76-year-old female with an illness for the last 4 days, generalized body aches, headache, cough, persistent nausea and no appetite. Intermittent fevers and chills. Normal bowel movements, no diarrhea. Although she's had persistent nausea, she's had no emesis. She is coughing "constantly". She did get a flu vaccination last May. Onset: Gradual (Over the past 5 days) Severity: Moderate Worsens with: Reports: Other (Cough worsens with activity and laying down) Associated Symptoms: Reports: Chest Pain (Had some chest pain 2 days ago that seems to have improved. It was mostly pain with coughing.), Cough, Fever/Chills - Related Data Allergies Allergy/AdvReac Type Severity Reaction Status Date / Time ciprofloxacin [From Cipro] Allergy Muscle Verified 11/11/17 11:23 Weakness Home Meds: Home Meds Aspirin [Ecotrin] 81 mg PO DAILY 06/17/13 [History] Atenolol [Tenormin] 25 mg PO DAILY 06/17/13 [History] Estrogens, Conjugated [Premarin] 1.25 mg PO DAILY 06/17/13 [History] atorvaSTATin [Lipitor] 20 mg PO BEDTIME 06/17/13 [History] Fluticasone/Salmeterol [Advair Hfa 230-21 Mcg Inhaler] 1 puff PO DAILY PRN 10/18 [History] Spironolact/Hydrochlorothiazid [Spironolactone-HCTZ 25-25] 25 mg PO DAILY [History] Loratadine [Claritin] 10 mg PO BEDTIME #30 tablet 05/18/17 [Rx] Cholecalciferol (Vitamin D3) [Vitamin D] 3,000 units PO BEDTIME 11/11/17 [ History] Multivitamin/Iron/Folic Acid [Centrum Adults Tablet] 1 tab PO BEDTIME 11/11/17 [ History] Vit A/Vit C/Vit E/Zinc/Copper [Preservision] 1 tab PO BID 11/11/17 [History] Past Medical History HEENT History: Reports: Cataract Cardiovascular History: Reports: Bypass, CAD, Hypertension 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: - Past Surgical History HEENT Surgical History: Reports: Cataract Surgery, Other (See Below) Other HEENT Surgeries/Procedures: teeth removal Cardiovascular Surgical History: Reports: Coronary Artery Bypass GI Surgical History: Reports: Cholecystectomy Female Surgical History: Reports: Hysterectomy Musculoskeletal Surgical History: Reports: Shoulder Surgery Other Musculoskeletal Surgeries/Procedures:: torn left rotator cuff Social & Family History - Family History Cardiac: Reports: CAD Respiratory: Reports: Asthma - Tobacco Use Smoking Status *Q: Unknown Ever Smoked Years of Tobacco use: 20 Used Tobacco, but Quit: Yes Month/Year Tobacco Last Used: 0 Second Hand Smoke Exposure: No - Alcohol Use Days Per Week of Alcohol Use: 0 - Recreational Drug Use Recreational Drug Use: No ED ROS GENERAL - Review of Systems Review Of Systems: See Below Constitutional: Reports: Fever, Chills, Malaise, Weakness HEENT: Reports: Rhinitis, Throat Pain Respiratory: Reports: Shortness of Breath, Wheezing, Cough Cardiovascular: Reports: Chest Pain GI/Abdominal: Reports: Nausea. Denies: Abdominal Pain, Diarrhea, Vomiting : Reports: No Symptoms Musculoskeletal: Reports: Muscle Pain (Aches all over) Skin: Reports: No Symptoms Neurological: Reports: Headache ED EXAM, GENERAL - Physical Exam Exam: See Below Exam Limited By: No Limitations General Appearance: Alert, No Apparent Distress (Patient looks tired and uncomfortable but not distressed) Throat/Mouth: Normal Inspection Head: Atraumatic Respiratory/Chest: No Respiratory Distress, Wheezing (Patient has diffuse expiratory wheezes and rhonchi bilaterally) Cardiovascular: Regular Rate, Rhythm GI/Abdominal: Normal Bowel Sounds, Soft, Non-Tender Extremities: Normal Inspection. No: Pedal Edema Neurological: Alert, Oriented Psychiatric: Normal Affect, Normal Mood Skin Exam: Warm, Dry Course - Vital Signs Last Recorded V/S: Last Vital Signs Temp 97.4 F 11/11/17 11:29 Pulse 86 11/11/17 11:29 Resp 16 11/11/17 11:29 BP 150/69 H 11/11/17 11:29 Pulse Ox 93 L 11/11/17 11:29 - Orders/Labs/Meds Orders: Active Orders 24 hr Category Date Time Status Chest 2V [CR] Routine Exams 11/11/17 11:49 Taken Labs: Laboratory Tests 11/11/17 11/11/17 Range/Units 12:00 12:00 WBC 11.4 H (4.5-11.0) K/uL RBC 4.34 (3.30-5.50) M/uL Hgb 13.1 D (12.0-15.0) g/dL Hct 39.2 (36.0-48.0) % MCV 90 (80-98) fL MCH 30 (27-31) pg MCHC 33 (32-36) % Plt Count 248 (150-400) K/uL Neut % (Auto) 83 H (36-66) % Lymph % (Auto) 8 L (24-44) % Ritchie % (Auto) 8 H (2-6) % Eos % (Auto) 0 L (2-4) % Baso % (Auto) 0 (0-1) % Sodium 138 L (140-148) mmol/L Potassium 3.7 (3.6-5.2) mmol/L Chloride 97 L (100-108) mmol/L Carbon Dioxide 29 (21-32) mmol/L Anion Gap 15.7 H (5.0-14.0) mmol/L BUN 17 D (7-18) mg/dL Creatinine 1.0 (0.6-1.0) mg/dL Est Cr Clr Drug Dosing 37.85 mL/min Estimated GFR (MDRD) 54 L (>60) Glucose 133 H (74-106) mg/dL Calcium 8.9 (8.5-10.1) mg/dL Total Bilirubin 0.3 (0.2-1.0) mg/dL AST 22 (15-37) U/L ALT 26 (12-78) U/L Alkaline Phosphatase 74 (46-116) U/L Troponin I < 0.017 (0.000-0.056) ng/mL Total Protein 7.6 (6.4-8.2) g/dL Albumin 3.0 L (3.4-5.0) g/dL Globulin 4.6 H (2.3-3.5) g/dL Albumin/Globulin Ratio 0.7 L (1.2-2.2) - Re-Assessments/Exams Free Text/Narrative Re-Assessment/Exam: 11/11/17 11:53 CBC, CMP, troponin and two-view chest x-ray were ordered as well as influenza antigens. 11/11/17 12:50 Two-view chest x-ray does not show any significant infiltrates. White count is mildly elevated, the rest of her labs are generally reassuring. Influenza antigens are both negative. Troponin is 0. Patient will be started on some Zithromax for atypical bronchitis, given some Robitussin before meals for cough suppression and Zofran for nausea. She is going to rest, stay warm and hydrated , and stay away from work for the next 3 days. She will return at any time if worsening despite the medications. Departure - Departure Time of Disposition: 13:16 Disposition: Home, Self-Care 01 Condition: Fair Clinical Impression: Nausea Bronchitis, acute Qualifiers: Bronchitis organism: unspecified organism Qualified Code(s): J20.9 - Acute bronchitis, unspecified - Discharge Information Instructions: Acute Bronchitis, Adult, [id number] Referrals: PCP,None [Primary Care Provider] - Forms: ED Department Discharge Care Plan Goals: Take the antibiotic as prescribed starting with 2 pills today. Use cough suppression medication as needed and the Zofran under her tongue for nausea. Try to get as much rest and fluids as possible the next several days and return at any time if worsening. Consider rechecking in 3-4 days if not improving satisfactorily. - My Orders Last 24 Hours: My Active Orders 11/11/17 11:49 Chest 2V [CR] Routine - Assessment/Plan Last 24 Hours: My Active Orders 11/11/17 11:49 Chest 2V [CR] Routine
--- NOTE | 2017-11-12 09:00 | CR ---
Chest 2V FINDINGS: The patient has had a prior sternotomy. The heart and vascular structures are normal in justice earance. No infiltrates or effusions are demonstrated. The skeletal structures are unremarkable. IMPRESSION: Negative exam.
== END 2017-11-11 13:20 | disposition home or self-care (01) ==
LOC: JP.ED 11:00
DX: J20.9 Acute bronchitis, unspecified (principal); R11.0 Nausea; I10 Essential (primary) hypertension; I25.10 Atherosclerotic heart disease of native coronary artery without angina pectoris; Z87.891 Personal history of nicotine dependence; Z79.82 Long term (current) use of aspirin; Z79.899 Other long term (current) drug therapy; Z88.1 Allergy status to other antibiotic agents
CPT/HCPCS: 36415; 71046; 71046-26; 80053; 84484; 85025; 87804; 99283; 99284

== ENCOUNTER 2018-10-11 09:55 | Emergency (ER) | payer MEDICARE, BC ==
[2018-10-11 10:14] VITALS: BP 138/63
--- NOTE | 2018-10-11 10:47 | EDM.PDOC ---
ED HPI GENERAL MEDICAL PROBLEM - General Chief Complaint: Genitourinary Problem Stated Complaint: POSSIBLE UTI Time Seen by Provider: 10/11/18 10:41 Source of Information: Reports: Patient History Limitations: Reports: No Limitations - History of Present Illness INITIAL COMMENTS - FREE TEXT/NARRATIVE: pt is having back pain, urinary frequency. She feels her bladder control is much less. Onset: Other ( started yesterday. ) Duration: Hour(s): Location: Reports: Abdomen, Back, Other ( Pt is having tenderness in the back. ) Associated Symptoms: Reports: Other ( slight nausea. ) - Related Data Allergies Allergy/AdvReac Type Severity Reaction Status Date / Time ciprofloxacin [From Cipro] Allergy Muscle Verified 10/11/18 10:33 Weakness Home Meds: Home Meds Aspirin [Ecotrin] 81 mg PO DAILY 06/17/13 [History] Atenolol [Tenormin] 25 mg PO DAILY 06/17/13 [History] Estrogens, Conjugated [Premarin] 1.25 mg PO DAILY 06/17/13 [History] atorvaSTATin [Lipitor] 20 mg PO BEDTIME 06/17/13 [History] Fluticasone/Salmeterol [Advair Hfa 230-21 Mcg Inhaler] 1 puff PO DAILY PRN 10/18 [History] Spironolact/Hydrochlorothiazid [Spironolactone-HCTZ 25-25] 25 mg PO DAILY [History] Cholecalciferol (Vitamin D3) [Vitamin D] 3,000 units PO BEDTIME 11/11/17 [ History] Multivitamin/Iron/Folic Acid [Centrum Adults Tablet] 1 tab PO BEDTIME 11/11/17 [ History] Vit A/Vit C/Vit E/Zinc/Copper [Preservision] 1 tab PO BID 11/11/17 [History] Montelukast Sodium 1 tab PO BEDTIME 10/11/18 [History] Past Medical History HEENT History: Reports: Cataract Cardiovascular History: Reports: Bypass, CAD, Hypertension Respiratory History: Reports: Asthma GENERAL FARM HAND History: Reports: - Past Surgical History HEENT Surgical History: Reports: Cataract Surgery, Other (See Below) Other HEENT Surgeries/Procedures: teeth removal Cardiovascular Surgical History: Reports: Coronary Artery Bypass GI Surgical History: Reports: Cholecystectomy Female Surgical History: Reports: Hysterectomy Musculoskeletal Surgical History: Reports: Shoulder Surgery Other Musculoskeletal Surgeries/Procedures:: torn left rotator cuff Social & Family History - Family History Cardiac: Reports: CAD Respiratory: Reports: Asthma - Tobacco Use Smoking Status *Q: Never Smoker ED ROS GENERAL - Review of Systems Review Of Systems: See Below Constitutional: Reports: Fever, Chills, Malaise HEENT: Reports: No Symptoms Respiratory: Reports: No Symptoms Cardiovascular: Reports: No Symptoms Endocrine: Reports: No Symptoms : Reports: Frequency, Other ( back pain) Musculoskeletal: Reports: Back Pain Neurological: Reports: No Symptoms Psychiatric: Reports: No Symptoms ED EXAM, RENAL/ - Physical Exam Exam: See Below Text/Narrative:: Pt is alert pt jb is chilling and has a low grade temp. She has back pain and is going to the Bathroom more frequently. Exam Limited By: No Limitations General Appearance: Alert, Mild Distress Ears: Normal External Exam Nose: Normal Inspection Throat/Mouth: Normal Inspection Head: Atraumatic Neck: Normal Inspection Respiratory/Chest: No Respiratory Distress Cardiovascular: Regular Rate, Rhythm GI/Abdominal: Soft, Non-Tender, Other (pt is tender in the CVA area. ) (Female) Exam: Deferred Rectal (Female) Exam: Deferred Back Exam: CVA Tenderness (R), CVA Tenderness (L) Extremities: Normal Inspection Neurological: Alert, Oriented, Normal Cognition Course - Vital Signs Last Recorded V/S: Last Vital Signs Temp 37.9 C 10/11/18 10:38 Pulse 73 10/11/18 10:38 Resp 16 10/11/18 10:38 BP 138/63 10/11/18 10:38 Pulse Ox 97 10/11/18 10:38 - Orders/Labs/Meds Orders: Active Orders 24 hr Category Date Time Status CULTURE URINE [RM] Stat Lab 10/11/18 11:01 Received Sodium Chloride 0.9% [Normal Saline] 1,000 ml Med 10/11/18 11:00 Active IV ASDIRECTED Medication Orders Sodium Chloride (Normal Saline) 1,000 mls @ 999 mls/hr IV ASDIRECTED VIDHYA Last Admin: 10/11/18 11:18 Dose: 999 mls/hr Labs: Laboratory Tests 10/11/18 10/11/18 10/11/18 Range/Units 10:43 10:46 10:54 WBC 11.5 H (4.5-11.0) K/uL RBC 4.28 (3.30-5.50) M/uL Hgb 13.1 (12.0-15.0) g/dL Hct 40.0 (36.0-48.0) % MCV 94 (80-98) fL MCH 31 (27-31) pg MCHC 33 (32-36) % Plt Count 273 (150-400) K/uL Neut % (Auto) 89 H (36-66) % Lymph % (Auto) 5 L (24-44) % Cavalier % (Auto) 6 (2-6) % Eos % (Auto) 0 L (2-4) % Baso % (Auto) 0 (0-1) % Sodium 135 L (140-148) mmol/L Potassium 3.3 L (3.6-5.2) mmol/L Chloride 96 L (100-108) mmol/L Carbon Dioxide 31 (21-32) mmol/L Anion Gap 11.3 (5.0-14.0) mmol/L BUN 16 (7-18) mg/dL Creatinine 1.1 H (0.6-1.0) mg/dL Est Cr Clr Drug Dosing 32.32 mL/min Estimated GFR (MDRD) 48 L (>60) Glucose 135 H (74-106) mg/dL Lactic Acid (0.4-2.0) mmol/L Calcium 8.8 (8.5-10.1) mg/dL Total Bilirubin 0.5 D (0.2-1.0) mg/dL AST 20 (15-37) U/L ALT 27 (12-78) U/L Alkaline Phosphatase 80 (46-116) U/L Total Protein 7.8 (6.4-8.2) g/dL Albumin 3.1 L (3.4-5.0) g/dL Globulin 4.7 H (2.3-3.5) g/dL Albumin/Globulin Ratio 0.7 L (1.2-2.2) Urine Color Yellow Urine Appearance Cloudy Urine pH 6.0 (4.5-8.0) Ur Specific Brethren 1.015 (1.008-1.030) Urine Protein Negative (NEGATIVE) mg/dL Urine Glucose (UA) Normal (NEGATIVE) mg/dL Urine Ketones Negative (NEGATIVE) mg/dL Urine Occult Blood Large (NEGATIVE) Urine Nitrite Positive H (NEGATIVE) Urine Bilirubin Negative (NEGATIVE) Urine Urobilinogen Normal (NORMAL) mg/dL Ur Leukocyte Esterase Large (NEGATIVE) Urine RBC 5-10 H (0-5) Urine WBC 30-40 H (0-5) Ur Epithelial Cells Moderate Amorphous Sediment Not seen Urine Bacteria Many Urine Mucus Few 10/11/18 Range/Units 10:59 WBC (4.5-11.0) K/uL RBC (3.30-5.50) M/uL Hgb (12.0-15.0) g/dL Hct (36.0-48.0) % MCV (80-98) fL MCH (27-31) pg MCHC (32-36) % Plt Count (150-400) K/uL Neut % (Auto) (36-66) % Lymph % (Auto) (24-44) % Cavalier % (Auto) (2-6) % Eos % (Auto) (2-4) % Baso % (Auto) (0-1) % Sodium (140-148) mmol/L Potassium (3.6-5.2) mmol/L Chloride (100-108) mmol/L Carbon Dioxide (21-32) mmol/L Anion Gap (5.0-14.0) mmol/L BUN (7-18) mg/dL Creatinine (0.6-1.0) mg/dL Est Cr Clr Drug Dosing mL/min Estimated GFR (MDRD) (>60) Glucose (74-106) mg/dL Lactic Acid 1.4 (0.4-2.0) mmol/L Calcium (8.5-10.1) mg/dL Total Bilirubin (0.2-1.0) mg/dL AST (15-37) U/L ALT (12-78) U/L Alkaline Phosphatase (46-116) U/L Total Protein (6.4-8.2) g/dL Albumin (3.4-5.0) g/dL Globulin (2.3-3.5) g/dL Albumin/Globulin Ratio (1.2-2.2) Urine Color Urine Appearance Urine pH (4.5-8.0) Ur Specific Brethren (1.008-1.030) Urine Protein (NEGATIVE) mg/dL Urine Glucose (UA) (NEGATIVE) mg/dL Urine Ketones (NEGATIVE) mg/dL Urine Occult Blood (NEGATIVE) Urine Nitrite (NEGATIVE) Urine Bilirubin (NEGATIVE) Urine Urobilinogen (NORMAL) mg/dL Ur Leukocyte Esterase (NEGATIVE) Urine RBC (0-5) Urine WBC (0-5) Ur Epithelial Cells Amorphous Sediment Urine Bacteria Urine Mucus Meds: Medications Generic Name Dose Route Start Last Admin Trade Name Freq PRN Reason Stop Dose Admin Sodium Chloride 1,000 mls @ 999 mls/hr 10/11/18 11:00 10/11/18 11:18 Normal Saline IV 999 mls/hr ASDIRECTED VIDHYA Administration Discontinued Medications Generic Name Dose Route Start Last Admin Trade Name Freq PRN Reason Stop Dose Admin Acetaminophen 650 mg 10/11/18 11:36 10/11/18 12:01 Tylenol PO 10/11/18 11:37 650 mg NOW ONE Administration Ceftriaxone Sodium 1 gm/ 50 mls @ 100 mls/hr 10/11/18 11:00 10/11/18 11:17 Sodium Chloride IV 10/11/18 11:29 100 mls/hr ONETIME ONE Administration Potassium Chloride 20 meq 10/11/18 11:28 10/11/18 12:01 Klor-Con M20 PO 10/11/18 11:29 20 meq ONETIME ONE Administration - Re-Assessments/Exams Free Text/Narrative Re-Assessment/Exam: 10/11/18 11:33 pt has a very infected urine and her wbc is mildly elevated. She was given tylenol an she was given a gram of rocehphen. Departure - Departure Time of Disposition: 11:35 Disposition: Home, Self-Care 01 Condition: Fair Clinical Impression: Kidney infection - Discharge Information Instructions: Urinary Tract Infection, Adult, [id number] Referrals: PCP,None [Primary Care Provider] - Forms: ED Department Discharge Care Plan Goals: push fluids, recheck UA in 10 days with regular physian. augmentin 875 bid, add alot of yogurt or probiotic - My Orders Last 24 Hours: My Active Orders 10/11/18 11:00 Sodium Chloride 0.9% [Normal Saline] 1,000 ml IV ASDIRECTED 10/11/18 11:01 CULTURE URINE [RM] Stat - Assessment/Plan Last 24 Hours: My Active Orders 10/11/18 11:00 Sodium Chloride 0.9% [Normal Saline] 1,000 ml IV ASDIRECTED 10/11/18 11:01 CULTURE URINE [RM] Stat
[2018-10-11] MEDS ORDERED: Sodium Chloride 0.9% 1,000 ML IV SCH (11:00)
[2018-10-11] MEDS ORDERED: cefTRIAXone 1 GM in Sodium Chloride 0.9% 50 ML IV ONE (11:00)
[2018-10-11] MEDS ORDERED: Potassium Chloride 20 MEQ Tab.ER PO ONE (11:28)
[2018-10-11] MEDS ORDERED: Acetaminophen 325 MG Tab PO ONE (11:36)
== END 2018-10-11 12:37 | disposition home or self-care (01) ==
LOC: JP.ED 09:55
DX: N15.9 Renal tubulo-interstitial disease, unspecified (principal); I10 Essential (primary) hypertension; I25.10 Atherosclerotic heart disease of native coronary artery without angina pectoris; Z95.1 Presence of aortocoronary bypass graft; Z88.1 Allergy status to other antibiotic agents; Z79.82 Long term (current) use of aspirin; Z79.899 Other long term (current) drug therapy
CPT/HCPCS: 36415; 80053; 81001; 83605; 85025; 87086; 87088; 87186; 96361; 96365; 99284; A9270; J0696; J7030; J7050

== ENCOUNTER 2025-03-04 09:33 | Inpatient (IN) | payer MEDICARE, BC ==
[2025-03-04] MEDS ORDERED: Non-Formulary Medication 1 Each (Fluticasone Propion/Salmeterol [Advair Hfa 230-21 Mcg Inh PO PRN (14:18)
[2025-03-04] MEDS ORDERED: Ondansetron 4 MG/2 ML SDV IV PRN (14:19)
[2025-03-04] MEDS ORDERED: Sennosides/Docusate Sodium 50-8.6 MG Tab PO PRN (14:19)
[2025-03-04] MEDS ORDERED: Acetaminophen/oxyCODONE 325-5 MG Tab PO PRN (14:19)
[2025-03-04] MEDS ORDERED: Magnesium Hydroxide 400 MG/5 ML Susp 30 ML Cup PO PRN (14:19)
[2025-03-04] MEDS ORDERED: Albuterol 0.083% 2.5 MG/3 ML Neb Soln NEB PRN (14:19)
[2025-03-04] MEDS ORDERED: Ondansetron 4 MG Tab.DIS PO PRN (14:19)
[2025-03-04 14:36] LABS: PLATELET COUNT,PLT 395 K/uL (130-375); RED BLOOD CELL COUNT 3.82 M/uL (3.77-5.24); WHITE BLOOD CELL COUNT,WBC 4.3 K/uL (3.2-11.0)
[2025-03-04] MEDS: Lactated Ringers 1,000 ML IV SCH (14:50)
[2025-03-04 15:00] LABS: A/G RATIO 0.6 (1.2-2.2); ALANINE AMINOTRANSFERASE,ALT 57 U/L (12-78); ASPARTATE AMNIOTRANSFERASE,AST 46 U/L (15-37); BILIRUBIN TOTAL 0.3 mg/dL (0.2-1.0); BLOOD UREA NITROGEN,BUN 28 mg/dL (7-18); CARBON DIOXIDE,CO2 29 mmol/L (21-32); CHLORIDE,CL 100 mmol/L (100-108); CREATININE 0.8 mg/dL (0.6-1.0); EST CRCL DRUG DOSING (CG) 39.50 mL/min; ESTIMATED GFR 73 mL/min (>60); GLUCOSE RANDOM 105 mg/dL (74-106); POTASSIUM,K 3.7 mmol/L (3.6-5.2); PROTEIN TOTAL,TP 6.9 g/dL (6.4-8.2); SODIUM,NA 136 mmol/L (140-148)
[2025-03-04 15:16] LABS: BAND ABSOLUTE MAN 0.09 K/uL; BAND PERCENT MAN 2 % (5-11); EOSINOPHILS ABSOLUTE MAN 0.22 K/uL (0.00-0.40); EOSINOPHILS PERCENT MAN 5 % (2-4); LYMPHOCYTES ABSOLUTE MAN 1.20 K/uL (0.8-3.3); LYMPHOCYTES PERCENT MAN 28 % (24-44); METAMYELOCYTE ABSOLUTE MAN 0.09 K/uL; METAMYELOCYTE PERCENT MAN 2 %; MONOCYTES ABSOLUTE MAN 0.13 K/uL (0.20-0.90); MONOCYTES PERCENT MAN 3 % (2-6); MYELOCYTE ABSOLUTE MAN 0.09; MYELOCYTE PERCENT MAN 2 %; NEUTROPHILS ABSOLUTE MAN 2.49 K/uL (1.0-7.6); SEG NEUTROPHILS PERCENT MAN 58 % (36-66)
[2025-03-04 15:19] LABS: ATYPICAL LYMPHOCYTES FEW
[2025-03-04] MEDS: Dexamethasone 4 MG/ML SDV IVPUSH SCH (18:02)
[2025-03-04 19:03] LABS: APPEARANCE,URINE TURBID (CLEAR); GLUCOSE,URINE NEGATIVE (NEGATIVE); OCCULT BLOOD,URINE SMALL (NEGATIVE)
[2025-03-04 19:11] LABS: EPITHELIAL CELLS,URINE MANY
[2025-03-04] MEDS: guaiFENesin/Dextromethorphan 100-10 MG/5 ML Soln 10 ML Cup PO PRN (19:15)
[2025-03-05 06:06] LABS: PLATELET COUNT,PLT 399.0 K/uL (130-375); RED BLOOD CELL COUNT 3.42 M/uL (3.77-5.24); WHITE BLOOD CELL COUNT,WBC 4.2 K/uL (3.2-11.0)
[2025-03-05 06:28] LABS: BLOOD UREA NITROGEN,BUN 22.0 mg/dL (7-18); CARBON DIOXIDE,CO2 28.0 mmol/L (21-32); CHLORIDE,CL 105.0 mmol/L (100-108); CREATININE 0.6 mg/dL (0.6-1.0); EST CRCL DRUG DOSING (CG) 52.67 mL/min; ESTIMATED GFR 88.0 mL/min (>60); GLUCOSE RANDOM 141.0 mg/dL (74-106); POTASSIUM,K 3.9 mmol/L (3.6-5.2); SODIUM,NA 141.0 mmol/L (140-148)
[2025-03-05] MEDS: Lactobacillus Rhamnosus GG (Probiotic) Cap PO SCH (08:10)
[2025-03-05] MEDS: Iopamidol 612 MG/ML 100 ML Bottle IV ONE (10:15)
[2025-03-05] MEDS: Sodium Chloride 0.9% 10 ML Syringe FLUSH ONE (10:15)
[2025-03-05] MEDS ORDERED: Dimethicone 20%/Zinc Oxide 25% 56 GM Spray Bottle TOP PRN (12:06)
[2025-03-05] MEDS: Formoterol/Mometasone 200-5 MCG 8.8 GM Inhaler IH SCH (12:21)
[2025-03-05] MEDS: Gadoteridol 279.3 MG/ML 15 ML SDV IV SCH (15:25)
[2025-03-05] MEDS ORDERED: Witch Hazel Medicated Pads 100/Jar TOP PRN (17:21)
[2025-03-05] MEDS: Dexamethasone 4 MG/ML SDV IVPUSH ONE (17:42)
[2025-03-06 11:23] VITALS: BP 153/69; PULSE 61
== END 2025-03-06 11:26 | disposition home or self-care (01) | DRG 394 ==
LOC: JP.ICU 09:33 → OBSVTOIN 03-05 09:33
PROVIDERS: ADMIT Internal Medicine; ATTEND Internal Medicine
DX: K52.1 Toxic gastroenteritis and colitis (principal); C78.01 Secondary malignant neoplasm of right lung; C79.89 Secondary malignant neoplasm of other specified sites; N30.00 Acute cystitis without hematuria; C78.02 Secondary malignant neoplasm of left lung; C78.7 Secondary malignant neoplasm of liver and intrahepatic bile duct; E86.0 Dehydration; K62.89 Other specified diseases of anus and rectum; Z66 Do not resuscitate; H54.7 Unspecified visual loss; I25.10 Atherosclerotic heart disease of native coronary artery without angina pectoris; I10 Essential (primary) hypertension; J45.909 Unspecified asthma, uncomplicated; F32.A Depression, unspecified; R05.9 Cough, unspecified; C50.911 Malignant neoplasm of unspecified site of right female breast; T45.1X5A Adverse effect of antineoplastic and immunosuppressive drugs, initial encounter; R19.7 Diarrhea, unspecified; M51.369 Other intervertebral disc degeneration, lumbar region without mention of lumbar back pain or lower extremity pain; Z98.49 Cataract extraction status, unspecified eye; Z98.890 Other specified postprocedural states; Z90.49 Acquired absence of other specified parts of digestive tract; Z87.891 Personal history of nicotine dependence; Z79.82 Long term (current) use of aspirin; Z95.1 Presence of aortocoronary bypass graft; Z79.899 Other long term (current) drug therapy; Z88.1 Allergy status to other antibiotic agents; Z90.710 Acquired absence of both cervix and uterus; Y92.89 Other specified places as the place of occurrence of the external cause
CPT/HCPCS: 36415; 51798; 71046; 71046-26; 72158; 72158-26; 74177; 74177-26; 80048; 80053; 81001; 85025; 85027; 86140; 87086; 87186; 94640; 96361; 96365; 96375; 96376; 99222; 99232; 99238; A9270-GY; A9579; G0378; J0696; J1100; J1642; J7120; Q9967